=== PATIENT | male | born 1945 | race Two or more races ===

== ENCOUNTER → 2016-03-18 | Outpatient (CLI) | payer OTHER, MEDICARE ==
[2016-02-19 15:59] VITALS: BP 110/61
[~2016-03-18] MED LIST: ALLO300T PO; CARV25TA2 PO; CHOL500016 PO; CINN500C PO; CYCL10TA2 PO; FURO80TA3 PO; GLUC100018 PO; HYDR-2678 PO; ISOS30TA4 PO; LEVO112T4 PO; LISI40TA PO; MULT-658 PO; OMEG500C3 PO; OMEP40CA5 PO; POTA20TA12 PO; PRAV40TA2 PO; THIA100T22 PO; WARF1TAB7 PO; WARF5TAB7 PO
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
== END | disposition home or self-care (01) ==
LOC: MRI 09:10
PROVIDERS: ATTEND Physician Assistant Medical
DX: M47.892 Other spondylosis, cervical region (principal); M51.26 Other intervertebral disc displacement, lumbar region; M48.07 Spinal stenosis, lumbosacral region; M54.5 Low back pain; V89.2XXA Person injured in unspecified motor-vehicle accident, traffic, initial encounter; X58.XXXA Exposure to other specified factors, initial encounter; Y93.89 Activity, other specified; Y92.89 Other specified places as the place of occurrence of the external cause; Y99.8 Other external cause status
CPT/HCPCS: 72141; 72146; 72148

== ENCOUNTER → 2016-04-09 | Outpatient (CLI) | payer OTHER ==
[2016-02-19 15:59] VITALS: BP 110/61
[~2016-04-09] MED LIST changes: +AMIO200T2 PO; +SERT50TA8 PO; +TADA5TAB PO; +WARF2.5T PO; +WARF5TAB PO
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
== END | disposition home or self-care (01) ==
LOC: PNCL 10:40
PROVIDERS: ATTEND Anesthesiology
DX: M54.5 Low back pain (principal); M79.605 Pain in left leg; M79.604 Pain in right leg
CPT/HCPCS: 99214

== ENCOUNTER → 2016-04-27 | Outpatient (CLI) | payer OTHER ==
[2016-02-19 15:59] VITALS: BP 110/61
[2016-04-27 13:32] LABS: INR 1.2 (0.8-1.1); PROTHROMBIN TIME PATIENT 14.1 SEC (11.7-14.0)
== END | disposition home or self-care (01) ==
LOC: LAB 12:51
PROVIDERS: ATTEND Anesthesiology
DX: M51.16 Intervertebral disc disorders with radiculopathy, lumbar region (principal); M48.06 Spinal stenosis, lumbar region
CPT/HCPCS: 36415; 62323; 85610

== ENCOUNTER → 2016-04-27 | Outpatient (CLI) | payer MEDICARE, OTHER ==
[2016-02-19 15:59] VITALS: BP 110/61
[~2016-04-27] MED LIST changes: +IOHEXOL 180 MG/ML 10 ML VIAL. ONE; +methylPREDNISolone ACETATE 40 MG/ML VIAL. ONE; +methylPREDNISolone ACETATE 80 MG/ML VIAL. ONE
--- NOTE | 2016-04-28 04:33 | PAIN ---
DATE OF SERVICE: 04/27/2016 DIAGNOSES: Lumbar radiculopathy with lumbar degenerative disk disease and lumbar spinal stenosis. HISTORY OF PRESENT ILLNESS: The patient is a 70-year-old male who returns for followup status post initial evaluation and clearance to hold his Coumadin, which was done with his planning advisor and he has held this now for 5 days, who returns today with a PT today of 14.1 and an INR of 1.2. The patient reports still significant pain across the low back and bilateral lower extremities, worse on the right. The patient reports no new motor or sensory deficits, no new bowel or bladder incontinence or other complaints. Still significant pain rated as a 5 on a scale of 10, constant aching in the base of the low back and into the bilateral gluteus and legs. The patient also has pain in the base of the neck and shoulders as well as somewhat more on the left side. The patient reports no new motor or sensory deficits, no new bowel or bladder incontinence or other complaints. PHYSICAL EXAMINATION: VITAL SIGNS: The patient's blood pressure is 122/74, pulse 70, respirations 18, temperature 97.7 degrees Fahrenheit, weight is 329 pounds. GENERAL: The patient is awake, alert, oriented and appropriate, very pleasant demeanor. HEENT: Shows normocephalic and atraumatic. Extraocular movements are intact and symmetrical. Oral cavity, mucous membranes are moist and pink. Dentition is intact. NECK: Shows anterior throat supple without palpable lymphadenopathy noted. Swallow reflex is symmetrical. CHEST: Shows normal on inspection. Breath sounds are clear to auscultation bilaterally. HEART: Shows S1 and S2 clear. No murmurs auscultated. ABDOMEN: Obese, soft, nontender, nondistended. No palpable organomegaly. No rebound or guarding demonstrated. BACK: Shows spine grossly midline. Cervical paraspinous musculature some moderate tenderness with palpation in the inferior aspect of the cervical paraspinous muscles as well as the superior medial trapezius bilaterally, but is symmetrical, moderately tender without specific radiation. The patient does show good rotational motion of the cervical spine, both laterally as well as extension and flexion. Lumbar paraspinous musculature shows some moderate tenderness with palpation, although symmetrical in appearance with diffuse tenderness in the middle and lower distribution bilaterally without radiation. The patient shows good rotation and motion of the lumbar spine, both laterally as well as extension and flexion. LOWER EXTREMITIES: Show deep tendon reflexes at 1+ in the patellar and tendo calcaneus tendons. Motor exam is strong with about 4 on a scale of 5, but symmetrical with dorsiflexion, extension, quadriceps and hamstring flexion and are equal. Peripheral pulses are 1+ posterior tibial and dorsalis pedis pulses. No peripheral edema is noted bilaterally. Options were discussed with the patient. The patient's old chart was reviewed and his current medication regimen updated. Current review of systems updated today as well. We will proceed with a lumbar epidural steroid injection today with fluoroscopic guidance. Risks were again discussed including but not limited to bleeding, infection, possibility of epidural hematoma, subsequent neurologic compromise, dural puncture, headaches, spinal cord and/or nerve damage, side effects of steroid medication and poor results regarding pain control. The patient understands and wishes to proceed. The patient will return to clinic in approximately 2 weeks for followup. He was counseled on return appointment, activity level and side effects to be aware of. DIAGNOSES: Lumbar radiculopathy with lumbar spinal stenosis, lumbar degenerative disk disease. PROCEDURE: Lumbar epidural steroid injection in translaminar approach at the L4-L5 level with C-arm fluoroscopic guidance and sterile prep and drape using local anesthesia, medication injection of 120 mg of Depo-Medrol plus 10 mL of preservative-free normal saline and 2 mL of Isovue for contrast. The patient's condition at discharge is stable. The patient tolerated the procedure well, had no complications. SARAH MERRILL MD DR: JOSE ROBERTO/olayinka JOB#: [id number] / [id number]
== END | disposition home or self-care (01) ==
LOC: PNCL 13:35
PROVIDERS: ATTEND Anesthesiology
DX: M51.16 Intervertebral disc disorders with radiculopathy, lumbar region (principal); M48.06 Spinal stenosis, lumbar region
CPT/HCPCS: 62323; J1030; J1040

== ENCOUNTER → 2016-05-21 | Outpatient (CLI) | payer OTHER ==
[2016-02-19 15:59] VITALS: BP 110/61
[~2016-05-21] MED LIST changes: -IOHEXOL 180 MG/ML 10 ML VIAL. ONE; -methylPREDNISolone ACETATE 40 MG/ML VIAL. ONE; -methylPREDNISolone ACETATE 80 MG/ML VIAL. ONE
--- NOTE | 2016-05-22 06:23 | PAIN ---
DATE OF SERVICE: 05/21/2016 PROGRESS NOTE FOR PAIN CLINIC DIAGNOSES: 1. Lumbar radiculopathy with lumbar degenerative disk disease and lumbar spinal stenosis. 2. Cervical radiculopathy with cervical degenerative disk disease. HISTORY OF PRESENT ILLNESS: The patient is a 70-year-old male who returns for followup status post lumbar epidural steroid injection x 1. The patient reports significant improvement, about 80% better in the back and his right greater than left lower extremity. The patient is doing much better, increasing his activity with greater ease and comfort. His main complaint, however, is pain in the base of the neck and radiation into the left upper extremity and arm into the hand with some tingling and numbness, which is becoming worse since his back has been better. The patient reports some on the right shoulder as well, but mostly in the left posterior aspect of the shoulder, lateral aspect of the shoulder and into the lateral aspect of the forearm and into the thumb ____ on the left hand. The patient reports his pain is a 4 on a scale of 10 in the neck, shoulder, worse with rotational motion, also with driving using his left arm to steer and it has been awakening him from sleep occasionally. Again, the patient's back is doing much better, but significant pain in the neck with radiating pain into the left upper extremity in a radicular fashion. The patient has just finished physical therapy for his neck as of about 1-1/2 weeks ago and reports that this did help some, but the pain is still significant and still radiating into the left arm. PHYSICAL EXAMINATION: VITAL SIGNS: The patient's blood pressure is 108/62, pulse 81, respirations 18, temperature 98.4 degrees Fahrenheit, weight is 330 pounds. GENERAL: The patient is awake, alert, oriented, appropriate, has a very pleasant demeanor. HEENT: Head shows normocephalic, atraumatic. Extraocular movements are intact, symmetrical. Oral cavity, mucous membranes are moist and pink. Dentition is intact. NECK: Shows anterior throat supple without palpable lymphadenopathy noted. Swallow reflex is symmetrical. CHEST: Shows normal on inspection. Breath sounds are clear to auscultation bilaterally. HEART: Shows S1 and S2 clear. ABDOMEN: Obese, soft, nontender, nondistended. No palpable organomegaly is noted. No rebound or guarding demonstrated. BACK: Shows spine grossly in the midline. Cervical paraspinous muscle shows some moderate tenderness to palpation in the inferior aspect of the cervical paraspinous muscles as well as the superior medial and lateral trapezius, somewhat more tender on the left than the right, but symmetrical, no trigger points, no radiation of pain demonstrated. EXTREMITIES: The patient's lower extremities show deep tendon reflexes 1+ in the patellar and tendo calcaneus tendons. Motor exam is approximately 4 on a scale of 5, but equal and symmetrical. Upper extremities show exchange architect strength at 4/5 on the left and 5/5 on the right. PLAN: Options were discussed with the patient. The patient's old chart was reviewed and his current medication regimen updated. Current review of systems updated today as well. We will preauthorize the patient for a cervical epidural steroid injection as he has had recent physical therapy, still significant pain radiating to the left upper extremity in a radicular fashion. The patient did have MRI scan of the cervical spine dated 03/18/2016 showing degenerative changes throughout the cervical disk spaces, but without significant central or spinal stenosis. We will also, once preapproved, have him hold his Coumadin for 5 days prior to the injection with PT and INR pending. Once again, we will try Medrol Dosepak in the meantime. The patient was given instructions as well as side effects to be aware of with this medication and he will follow up as scheduled. SARAH MERRILL MD DR: JOSE ROBERTO/olayinka JOB#: [id number] / [id number]
== END | disposition home or self-care (01) ==
LOC: PNCL 10:25
PROVIDERS: ATTEND Anesthesiology
DX: M51.16 Intervertebral disc disorders with radiculopathy, lumbar region (principal); M48.06 Spinal stenosis, lumbar region; M50.10 Cervical disc disorder with radiculopathy, unspecified cervical region
CPT/HCPCS: G0463

== ENCOUNTER → 2016-07-01 | Outpatient (CLI) | payer OTHER, MEDICARE ==
[2016-02-19 15:59] VITALS: BP 110/61
[~2016-07-01] MED LIST changes: +IOHEXOL 180 MG/ML 10 ML VIAL. ONE; +methylPREDNISolone ACETATE 40 MG/ML VIAL. ONE; +methylPREDNISolone ACETATE 80 MG/ML VIAL. ONE
--- NOTE | 2016-07-01 23:38 | PAIN ---
DATE OF SERVICE: 07/01/2016 PROGRESS NOTE FOR PAIN CLINIC DIAGNOSES: 1. Lumbar radiculopathy with lumbar degenerative disk disease, lumbar spinal stenosis. 2. Cervical radiculopathy with cervical degenerative disk disease. HISTORY OF PRESENT ILLNESS: The patient is a 70-year-old male, who returns for followup status post lumbar epidural steroid injection x 1 with good results about 80% improvement. He is having some significant pain in the neck and shoulders. ____ him for cervical epidural steroid injections ____ has been off his Coumadin now for 5 days with PT is 12.7, INR 1.0 today. The patient reports still significant pain in the base of the neck and shoulders and would like to proceed with this mostly in the right arm and shoulder, right hand with some decreased strength in the right fur examiner, otherwise no new motor or sensory deficits, no new bowel or bladder incontinence or other complaints. PHYSICAL EXAMINATION: VITAL SIGNS: Today, the patient's blood pressure is 164/71, pulse 81, respirations 18, temperature is 98.7 degrees, weight is 338 pounds. GENERAL: The patient is awake, alert, oriented, appropriate, very pleasant demeanor. HEENT: Head shows normocephalic, atraumatic. Extraocular movements are intact, symmetrical. Oral cavity, mucous membranes are moist and pink. Dentition is intact. NECK: Shows anterior throat supple without palpable lymphadenopathy noted. Swallow reflex is symmetrical. CHEST: Shows normal on inspection. Breath sounds are clear to auscultation bilaterally. HEART: Shows S1 and S2 clear. ABDOMEN: Soft, nontender, nondistended. No palpable organomegaly is noted. No rebound or guarding demonstrated. BACK: The patient's back shows spine grossly midline. Cervical paraspinous muscle shows some mild tenderness with palpation, more on the right than the left in the inferior aspect of the cervical paraspinous musculature without radiation. The patient does show good rotational motion of cervical spine including extension and flexion without difficulty. EXTREMITIES: Upper extremities show deep tendon reflexes at 1+ in the biceps and triceps tendons. Motor exam is strong with fur examiner strength at about 4/5 on the right and 5/5 on the left. Options were discussed with the patient. At this time, the patient's old chart was reviewed and his current medication regimen updated. Current review of systems updated today as well. We will proceed with a cervical epidural steroid injection today with fluoroscopic guidance. Risk again discussed including but not limited to bleeding, infection, possibility of epidural hematoma and subsequent neurological compromise, dural puncture, headaches, spinal cord and/or nerve damage, side effects of steroid medication and poor results regarding pain control. The patient understands and wishes to proceed. The patient will return to clinic in approximately 2 weeks for followup, was counseled on return appointment, activity level, and side effects to be aware of. DIAGNOSIS: Cervical radiculopathy with cervical degenerative disk disease. PROCEDURE: Cervical epidural steroid injection using C-arm fluoroscopic guidance under sterile prep and drape using local anesthetic. MEDICATION INJECTED: Depo-Medrol 120 mg plus 5 mL of preservative-free normal saline and 2 mL of Isovue for contrast. CONDITION AT DISCHARGE: Stable. The patient tolerated procedure well, had no complications. SARAH MERRILL MD DR: JOSE ROBERTO/olayinka JOB#: [id number] / [id number]
== END | disposition home or self-care (01) ==
LOC: PNCL 09:18
PROVIDERS: ATTEND Anesthesiology
DX: M50.10 Cervical disc disorder with radiculopathy, unspecified cervical region (principal); M51.16 Intervertebral disc disorders with radiculopathy, lumbar region; M48.06 Spinal stenosis, lumbar region
CPT/HCPCS: 62321; J1030; J1040

== ENCOUNTER → 2016-07-15 | Outpatient (CLI) | payer OTHER ==
[2016-02-19 15:59] VITALS: BP 110/61
[~2016-07-15] MED LIST changes: +ATOR10TA60 PO; -IOHEXOL 180 MG/ML 10 ML VIAL. ONE; +WARF-78 PO; -WARF2.5T PO; +WARF2.5T83 PO; -WARF5TAB PO; -methylPREDNISolone ACETATE 40 MG/ML VIAL. ONE; -methylPREDNISolone ACETATE 80 MG/ML VIAL. ONE
--- NOTE | 2016-07-15 23:40 | PAIN ---
DATE OF SERVICE: 07/15/2016 PROGRESS NOTE PAIN CLINIC DIAGNOSES: 1. Lumbar radiculopathy with lumbar degenerative disk disease and lumbar spinal stenosis. 2. Cervical radiculopathy with cervical degenerative disk disease. HISTORY OF PRESENT ILLNESS: The patient is 70-year-old male who returns for followup status post both lumbar epidural steroid injections and cervical epidural steroid injections x 2. The patient reports that he has done very well with each of these about 50% improvement overall to 60% improvement with his neck and shoulder. The patient reports still some pain in the base of the neck on the left side and into the left arm, but again much improved after the last injection, which was on 07/01/2016. The patient reports no new motor or sensory deficits or other complaints, just some pain radiating from a 0 to 6 on a scale of 10, 6 with increased activity using his left upper extremity, moving his neck, or looking upwards, doing any activities with his arms overhead. The patient reports this is a stabbing pain, it is off and on, but is not constant at this time. The patient's low back is doing much better and he has very little complaint with that ____. The patient reports no new motor or sensory deficits, no new bowel or bladder incontinence or other complaints. PHYSICAL EXAMINATION: VITAL SIGNS: Today his blood pressure is 90/60 and 90/58 on second reading. The patient's pulse is 56, respirations 16, temperature 98.4 degrees Fahrenheit, weight is 331 pounds. GENERAL: The patient is awake, alert, oriented and appropriate, very pleasant demeanor. HEENT: Shows normocephalic, atraumatic. ____. Extraocular movements are intact and symmetrical. Oral cavity, mucous membranes are moist and pink. Dentition is intact. NECK: Shows anterior throat supple. Swallow reflex is symmetrical. CHEST: Shows normal with inspection. LUNGS: Breath sounds clear to auscultation bilaterally. HEART: Shows S1 and S2 clear. ABDOMEN: Soft, obese, nontender, and nondistended. MUSCULOSKELETAL: Back shows spine grossly in midline. Exaggerated thoracic kyphosis and mild flattening of the lumbar lordotic curvature with normal lordotic cervical curvature. The patient shows cervical musculature with some moderate tenderness with palpation with more on the left than the right inferior aspects of the cervical paraspinous muscles and to the left lateral trapezius, but not to the right. The patient shows full rotation motion of the cervical spine with extension and flexion without significant difficulty and minor tenderness with forward left lateral rotation past 45 degrees, but not with right lateral rotation. Upper extremity showed deep tendon reflexes at 1+ in the biceps and triceps tendon. Motor exam is approximately 4 on a scale of 5 with left line tender flakeboard strength, biceps and triceps flexion of 5/5 on the right. Low back shows only very minimal tenderness with deep palpation over the lower lumbar paraspinous musculature diffusely without radiation. No tenderness over the sacrum or sacroiliac regions. EXTREMITIES: Lower extremities show deep tendon reflexes 1+ in the patellar and tendo-calcaneus tendons. Motor exam is strong with 5/5 dorsiflexion, extension and quadricep and hamstring flexion and symmetrical. Options were discussed with the patient. We will have the patient hold his Coumadin once again as he has been cleared to do this with his primary physician. We will have him hold this for 5 days. Check PT and INR and plan on a third cervical epidural steroid injection, which will be the final injection in the series on return. SARAH MERRILL MD DR: JOSE ROBERTO/olayinka JOB#: [id number] / [id number]
== END | disposition home or self-care (01) ==
LOC: PNCL 09:12
PROVIDERS: ATTEND Anesthesiology
DX: M51.16 Intervertebral disc disorders with radiculopathy, lumbar region (principal); M48.06 Spinal stenosis, lumbar region; M50.10 Cervical disc disorder with radiculopathy, unspecified cervical region
CPT/HCPCS: G0463

== ENCOUNTER → 2016-07-31 | Outpatient (CLI) | payer OTHER ==
[2016-02-19 15:59] VITALS: BP 110/61
[2016-07-31 09:21] LABS: INR 1.5 (0.8-1.1)
[2016-07-31 09:25] LABS: PROTHROMBIN TIME PATIENT 16.8 SEC (11.7-14.0)
== END | disposition home or self-care (01) ==
LOC: LAB 08:37
PROVIDERS: ATTEND Anesthesiology
DX: Z79.01 Long term (current) use of anticoagulants (principal)
CPT/HCPCS: 36415; 85610

== ENCOUNTER → 2016-08-19 | Outpatient (CLI) | payer OTHER ==
[2016-02-19 15:59] VITALS: BP 110/61
--- NOTE | 2016-08-19 14:42 | KCIC ---
Examination: Ultrasound right lower extremity venous duplex HISTORY: History of right lower extremity edema TECHNIQUE: Grayscale, color, spectral with prominence of the right lower extremity venous system were performed. FINDINGS: The visualized common femoral vein, superficial femoral vein, popliteal vein demonstrate normal compression and augmentation of flow. Evaluation of the calf veins are somewhat limited but however appear patent. Mild soft tissue edema identified in the right lower leg Mild enlargement of the right inguinal lymph node measuring 3 cm. IMPRESSION: No evidence of deep venous thrombosis in the visualized right lower extremity. Electronically signed by: Dyllan Steele MD (08/19/2016 2:38 PM)
== END | disposition home or self-care (01) ==
LOC: KCIC US 13:37
PROVIDERS: ATTEND Family Medicine
DX: R60.0 Localized edema (principal); R59.9 Enlarged lymph nodes, unspecified
CPT/HCPCS: 93971

== ENCOUNTER → 2016-08-20 | Outpatient (CLI) | payer OTHER ==
[2016-02-19 15:59] VITALS: BP 110/61
--- NOTE | 2016-08-20 13:21 | RAD ---
Left foot, 3 views, 08/20/2016: History: Great toe injury, pain There is patchy bony demineralization. There is deformity of the distal phalanx of the great toe, compatible with an old healed fracture. There is a cortical discontinuity with an adjacent lucency along the lateral margin of the proximal portion of the distal phalanx raising the possibility of a superimposed acute nondisplaced fracture. There are degenerative changes at the interphalangeal joint of the great toe. Numerous tiny radio opaque foreign bodies projected over the soft tissues in this region are likely old. Clinical correlation is suggested. There is a small linear wire-like radiopaque foreign body projected over the soft tissues along the plantar aspect of the foot at the level of the proximal phalanx of the third toe. This is also likely due to old trauma. No other acute fracture or dislocation is identified. Arterial calcifications are present. There is mild generalized subcutaneous edema. IMPRESSION: 1. Demineralization. 2. Deformity of the distal phalanx of the great toe which is predominantly old. There is a suggestion of a nondisplaced fracture laterally which may be new. 3. Adjacent tiny radiopaque foreign bodies in the soft tissues of the great toe, likely old. 4. Additional small wire-like radiopaque foreign body projected over the soft tissues at the proximal third phalangeal level.
== END | disposition home or self-care (01) ==
LOC: RAD 10:15
PROVIDERS: ATTEND Physician Assistant Medical
DX: S99.922A Unspecified injury of left foot, initial encounter (principal); X58.XXXA Exposure to other specified factors, initial encounter; Y93.89 Activity, other specified; Y92.89 Other specified places as the place of occurrence of the external cause; Y99.8 Other external cause status
CPT/HCPCS: 73630

== ENCOUNTER → 2016-08-24 | Outpatient (CLI) | payer OTHER ==
[2016-02-19 15:59] VITALS: BP 110/61
[~2016-08-24] MED LIST changes: -CINN500C PO; +CINN500C2 PO
[2016-08-24 09:23] LABS: INR 1.1 (0.8-1.1); PROTHROMBIN TIME PATIENT 13.1 SEC (11.7-14.0)
== END | disposition home or self-care (01) ==
LOC: LAB 08:57
PROVIDERS: ATTEND Anesthesiology
DX: Z79.01 Long term (current) use of anticoagulants (principal)
CPT/HCPCS: 36415; 85610

== ENCOUNTER → 2016-08-24 | Outpatient (CLI) | payer OTHER ==
[2016-02-19 15:59] VITALS: BP 110/61
[~2016-08-24] MED LIST changes: +IOHEXOL 180 MG/ML 10 ML VIAL. ONE; +methylPREDNISolone ACETATE 40 MG/ML VIAL. ONE; +methylPREDNISolone ACETATE 80 MG/ML VIAL. ONE
--- NOTE | 2016-08-25 02:16 | PN ---
DATE: 08/24/2016 PROGRESS NOTE FOR PAIN CLINIC DIAGNOSES: 1. Lumbar radiculopathy with lumbar degenerative disk disease and lumbar spinal stenosis. 2. Cervical radiculopathy with cervical degenerative disk disease. HISTORY OF PRESENT ILLNESS: The patient is a 71-year-old male who returns for followup status post cervical epidural steroid injection x 2. The patient reports he did very well about a 50-60% improvement, we are waiting for his PT and INR to normalize, is now 13.1 and 1.1 INR. The patient's significant pain in the base of the neck and shoulders as he had previously more on the right side than the left, but his aching, sharp pain is constant, rates as 8 on a scale of 10. It is worst, is currently 3 on a scale of 10 today. The patient was doing well, awake. He fell about a week ago ____ stroke and stubbed the toe on his left foot and significant swelling in his right lower extremity as well as he put on Keflex has been off for 5 days by his report from his primary physician's office, but still has some significant pain and some weeping actually from the edema in his right leg. The patient reports no new motor or sensory deficits, no new bowel or bladder incontinence or other complaints. Reports the pain awakens him from night, but only occasionally, easily sleeps about 6-8 hours a night without difficulty. PHYSICAL EXAMINATION: VITAL SIGNS: Today, the patient's blood pressure 129/65, pulse 70, respirations are 20, temperature 97.6 degrees Fahrenheit. GENERAL: The patient is awake, alert, oriented, appropriate, very pleasant demeanor. HEENT: Head shows normocephalic, atraumatic. Extraocular movements are intact and symmetrical. The patient wears glasses. Oral cavity, mucous membranes are moist and pink. Dentition is intact. NECK: Shows anterior throat supple without palpable lymphadenopathy noted. Swallow reflex is symmetrical. CHEST: Shows normal on inspection. Breath sounds are clear to auscultation bilaterally. HEART: Shows S1 and S2 clear. ABDOMEN: Obese, soft, nontender, nondistended. No palpable organomegaly is noted. BACK: Shows spine grossly midline. Cervical paraspinous musculature shows some moderate tenderness with palpation throughout the middle and lower cervical paraspinous musculature diffusely in the superior medial and lateral trapezius as well bilaterally. This appears roughly symmetrical with palpation shows some moderate tenderness, but without radiation or trigger points. EXTREMITIES: Upper extremities showed deep tendon reflexes at 1+ in the biceps and triceps tendons. Motor exam is strong with cupola liner strength rated at 5/5 bilaterally. Options were discussed with the patient. The patient's old chart was reviewed as his current medication regimen updated. Current review of systems updated today as well. We will proceed with the cervical epidural steroid injections third in the series with fluoroscopic guidance. Risks were again discussed including, but not limited to bleeding, infection, possibility of epidural hematoma and subsequent neurological compromise, dural puncture, headaches, spinal cord and/or nerve damage, side effects of steroid medication and poor results regarding pain control. The patient understands and wishes to proceed. The patient will return to clinic in approximately 2 weeks for followup, was counseled on return appointment, activity level and side effects to be aware of. DIAGNOSIS: Cervical radiculopathy with cervical degenerative disk disease. PROCEDURE: Cervical epidural steroid injection in translaminar approach at the C6-C7 level using C-arm fluoroscopic guidance under sterile prep and drape using local anesthetic. MEDICATION INJECTED: Depo-Medrol of 120 mg plus 5 mL preservative-free normal saline and 2 mL of Isovue for contrast. CONDITION AT DISCHARGE: Stable. The patient tolerated procedure well, had no complications. SARAH MERRILL MD DR: JOSE ROBERTO/olayinka JOB#: [id number] / [id number]
== END | disposition home or self-care (01) ==
LOC: PNCL 09:16
PROVIDERS: ATTEND Anesthesiology
DX: M50.123 Cervical disc disorder at C6-C7 level with radiculopathy (principal); M51.16 Intervertebral disc disorders with radiculopathy, lumbar region; M48.06 Spinal stenosis, lumbar region; Z88.8 Allergy status to other drugs, medicaments and biological substances
CPT/HCPCS: 62321; J1030; J1040

== ENCOUNTER 2016-09-23 13:06 | Inpatient (IN) | payer OTHER ==
[~2016-09-23] VITALS: Ht 180.3 cm; Wt 145.3 kg
[~2016-09-23 13:06] MED LIST changes: -IOHEXOL 180 MG/ML 10 ML VIAL. ONE; -methylPREDNISolone ACETATE 40 MG/ML VIAL. ONE; -methylPREDNISolone ACETATE 80 MG/ML VIAL. ONE
[2016-09-23] MEDS ORDERED: IV NORMAL SALINE 1000ML BAG 1,000 ML IV ONE (15:45)
[2016-09-23 16:10] VITALS: BP 77/46
[2016-09-23 16:29] LABS: HEMATOCRIT 34.9 % (39.0-53.0); RED BLOOD COUNT 4.01 x10^6/uL (4.30-5.70); WHITE BLOOD COUNT 6.8 x10^3/uL (4.0-11.0)
[2016-09-23 16:45] VITALS: BP 92/78
[2016-09-23 17:00] LABS: ALBUMIN/GLOBULIN RATIO 0.7 (1.0-1.7); CALCIUM 7.4 mg/dL (8.5-10.1); CREATININE 9.5 mg/dL (0.7-1.3); GFR 5.5; POTASSIUM 3.6 mmol/L (3.5-5.1); TOTAL BILIRUBIN 0.6 mg/dL (0.2-1.0); TOTAL PROTEIN 7.2 g/dL (6.4-8.2)
[2016-09-23] MEDS: IV DEXTROSE 5% - 0.9 % NACL 1,000 ML IV SCH ×2 (17:30→23:34)
[2016-09-23] MEDS: PANTOPRAZOLE 40 MG TABLET.DR. PO SCH (17:30)
[2016-09-23] MEDS: SERTRALINE 50 MG TABLET. PO SCH (17:31)
[2016-09-23] MEDS: LEVOTHYROXINE 112 MCG TABLET PO SCH (17:31)
[2016-09-23 18:29] LABS: BILIRUBIN,URINE NEGATIVE (NEG); GLUCOSE,URINE NEGATIVE (NEG); NITRITE,URINE NEGATIVE (NEG); PROTEIN,URINE NEGATIVE (NEG-TRACE); UROBILINOGEN,URINE 0.2 mg/dL (0.2 mg/dL)
[2016-09-23 18:38] LABS: BACTERIA,URINE 0 /HPF (0-FEW); RBC,URINE 0 /HPF (0-2); SQUAMOUS EPITHELIAL CELL,UR FEW /LPF; WBC,URINE OCC /HPF (0-4)
[2016-09-23 19:00] VITALS: BP 104/53
[2016-09-23 23:00] VITALS: BP 94/50
[2016-09-23] MEDS: ACETAMINOPHEN 325 MG TABLET. PO PRN (23:30)
[2016-09-24] MEDS ORDERED: [UNRECOGNIZED DRUG - CODE] PO (02:30)
[2016-09-24 03:00] VITALS: BP 90/50
[2016-09-24 04:27] LABS: CALCIUM 7.1 mg/dL (8.5-10.1); GFR 7.8
[2016-09-24] MEDS: IV DEXTROSE 5% - 0.9 % NACL 1,000 ML IV SCH (05:42)
[2016-09-24] MEDS: LEVOTHYROXINE 112 MCG TABLET PO SCH (05:42)
[2016-09-24 06:58] VITALS: BP 109/60
--- NOTE | 2016-09-24 08:20 | RAD ---
Renal ultrasound, 09/23/2016: History: Acute renal failure The right kidney measures 11.8 cm in length while the left kidney measures 13.1 cm. There is no evidence of hydronephrosis or a renal mass. The renal parenchymal echogenicity is within normal limits. No abnormal perinephric process is seen. Limited views of the urinary bladder show no abnormality. There is a small volume of post voiding residual urine in the bladder estimated at 77 cc. IMPRESSION: No significant renal abnormality is detected.
--- NOTE | 2016-09-24 08:28 | PDOC1 ---
History and Physical Date of Admission Date of Admission DATE: 09/23/16 TIME: 08:25 Identification/Chief Complaint Chief Complaint arf Problems: History of Present Illness History of Present Illness hx of AF, has been taking both lasix and metolozone recently for edema- hx of no CAD/ cardiomyopathy- labs as op showed arf and admitted- hypotensive in office as well Past Medical History Cardiovascular: AFIB, HTN, Hyperlipidemia GI: GERD Musculoskeletal: Other Endocrine: Hypothyroidism Past Surgical History Past Surgical History: Total hip replacement, Tonsillectomy, Other Family History Family History: No Significant Social History ALCOHOL: none Current Medications Current Medications Current Medications Sodium Chloride 1,000 ml @ 500 mls/hr 1X ONCE IV Last administered on 15:30; Start 09/23/16 at 15:45; Stop 09/23/16 at 17:44; Status DC Dextrose/Sodium Chloride 1,000 ml @ 200 mls/hr Q5H IV Last administered on 05:42; Start 09/23/16 at 15:45 Levothyroxine Sodium (Synthroid) 112 mcg DAILY07 PO Last administered on 05:42; Start 09/23/16 at 16:00 Sertraline HCl (Zoloft) 50 mg DAILY PO ; Start 09/23/16 at 16:00 Pantoprazole Sodium (Protonix) 40 mg DAILYAC PO ; Start 09/23/16 at 16:00 Acetaminophen (Tylenol) 650 mg PRN Q6HRS PRN PO Pain Last administered on 23:30; Start 09/23/16 at 23:15 Active Scripts Active Lortab 5-325 mg Tablet (Hydrocodone/Acetaminophen) 1 Each Tablet 1 Tab PO PRN Q6HRS PRN Cyclobenzaprine Hcl 10 Mg Tablet 10 Mg PO TID PRN Reported Dietex Forte Capsule (Guar/Steven/Dr Wynn-Org Peel/[id number]) 1 Each Capsule 1 Each PO DAILY Atorvastatin Calcium 10 Mg Tablet 40 Tab PO DAILY Amiodarone Hcl 200 Mg Tablet 1 Tab PO DAILY Coumadin (Warfarin Sodium) 5 Mg Tablet 1 Tab PO 5 DAYS A WEEK Coumadin (Warfarin Sodium) 2.5 Mg Tablet 1 Tab PO TWICE WEEKLY Sertraline Hcl 50 Mg Tablet 50 Mg PO DAILY Cialis (Tadalafil) 5 Mg Tablet 20 Mg PO PRN PRN Vitamin D3 (Cholecalciferol (Vitamin D3)) 5,000 Unit Tablet 1 Tab PO DAILY Vitamin B-1 (Thiamine Mononitrate) 100 Mg Tablet 100 Mg PO Glucosamine (Glucosamine Sulfate 2KCL) 1,000 Mg Tablet 1,000 Mg PO BID Fish Oil ([place]-3 Fatty Acids) 500 Mg Capsule 360 Mg PO TID Cinnamon (Cinnamon Bark) 500 Mg Capsule 500 Mg PO BID Centrum Silver Tablet (Multivits-Min/Fa/Lycopene/Lut) 1 Each Tablet 1 Each PO Omeprazole 40 Mg Capsule.dr 1 Cap PO DAILY Lisinopril 40 Mg Tablet 1 Tab PO BID Levothyroxine Sodium 112 Mcg Tablet 1 Tab PO DAILY Potassium Chloride 20 Meq Tab.er.prt 2 Tab PO DAILY Furosemide 80 Mg Tablet 1 Tab PO BID Carvedilol 25 Mg Tablet 1 Tab PO BID Allopurinol 300 Mg Tablet 1 Tab PO DAILY Allergies Allergies: Coded Allergies: naproxen (Verified Allergy, Intermediate, Hives, 12/10/14) Vitals Vitals Vital Signs Date Time Temp Pulse Resp B/P (MAP) Pulse Ox O2 Delivery O2 Flow Rate FiO2 09/24/16 07:55 Room Air 09/24/16 06:58 98.7 82 18 109/60 (76) 95 98.7 Labs Labs Laboratory Tests Test 09/23/16 16:15 09/23/16 18:00 09/24/16 03:00 White Blood Count 6.8 x10^3/uL (4.0-11.0) Red Blood Count 4.01 x10^6/uL (4.30-5.70) Hemoglobin 12.0 g/dL (13.0-17.5) Hematocrit 34.9 % (39.0-53.0) Mean Corpuscular Volume 87 fL (79-100) Mean Corpuscular Hemoglobin 30 pg (25-35) Mean Corpuscular Hemoglobin Concent 34 g/dL (31-37) Red Cell Distribution Width 15.0 % (11.5-14.5) Platelet Count 133 x10^3/uL (140-400) Sodium Level 140 mmol/L (136-145) 144 mmol/L (136-145) Potassium Level 3.6 mmol/L (3.5-5.1) 3.0 mmol/L (3.5-5.1) Chloride Level 100 mmol/L (98-107) 106 mmol/L (98-107) Carbon Dioxide Level 21 mmol/L (21-32) 20 mmol/L (21-32) Anion Gap 19 (6-14) 18 (6-14) Blood Urea Nitrogen 213 mg/dL (8-26) 194 mg/dL (8-26) Creatinine 9.5 mg/dL (0.7-1.3) 7.0 mg/dL (0.7-1.3) Estimated GFR (Cockcroft-Gault) 5.5 7.8 BUN/Creatinine Ratio 22 (6-20) Glucose Level 101 mg/dL (70-99) 125 mg/dL (70-99) Calcium Level 7.4 mg/dL (8.5-10.1) 7.1 mg/dL (8.5-10.1) Total Bilirubin 0.6 mg/dL (0.2-1.0) Aspartate Amino Transf (AST/SGOT) 20 U/L (15-37) Alanine Aminotransferase (ALT/SGPT) 29 U/L (16-63) Alkaline Phosphatase 62 U/L (46-116) Total Protein 7.2 g/dL (6.4-8.2) Albumin 3.0 g/dL (3.4-5.0) Albumin/Globulin Ratio 0.7 (1.0-1.7) Urine Collection Type Unknown Urine Color Yellow Urine Clarity Clear Urine pH 5.0 Urine Specific [place] 1.015 Urine Protein Negative mg/dL (NEG-TRACE) Urine Glucose (UA) Negative mg/dL (NEG) Urine Ketones (Stick) Negative mg/dL (NEG) Urine Blood Negative (NEG) Urine Nitrite Negative (NEG) Urine Bilirubin Negative (NEG) Urine Urobilinogen Dipstick 0.2 mg/dL (0.2 mg/dL) Urine Leukocyte Esterase Negative (NEG) Urine RBC 0 /HPF (0-2) Urine WBC Occ /HPF (0-4) Urine Squamous Epithelial Cells Few /LPF Urine Bacteria 0 /HPF (0-FEW) Laboratory Tests Test 09/23/16 16:15 09/23/16 18:00 09/24/16 03:00 White Blood Count 6.8 x10^3/uL (4.0-11.0) Red Blood Count 4.01 x10^6/uL (4.30-5.70) Hemoglobin 12.0 g/dL (13.0-17.5) Hematocrit 34.9 % (39.0-53.0) Mean Corpuscular Volume 87 fL (79-100) Mean Corpuscular Hemoglobin 30 pg (25-35) Mean Corpuscular Hemoglobin Concent 34 g/dL (31-37) Red Cell Distribution Width 15.0 % (11.5-14.5) Platelet Count 133 x10^3/uL (140-400) Sodium Level 140 mmol/L (136-145) 144 mmol/L (136-145) Potassium Level 3.6 mmol/L (3.5-5.1) 3.0 mmol/L (3.5-5.1) Chloride Level 100 mmol/L (98-107) 106 mmol/L (98-107) Carbon Dioxide Level 21 mmol/L (21-32) 20 mmol/L (21-32) Anion Gap 19 (6-14) 18 (6-14) Blood Urea Nitrogen 213 mg/dL (8-26) 194 mg/dL (8-26) Creatinine 9.5 mg/dL (0.7-1.3) 7.0 mg/dL (0.7-1.3) Estimated GFR (Cockcroft-Gault) 5.5 7.8 BUN/Creatinine Ratio 22 (6-20) Glucose Level 101 mg/dL (70-99) 125 mg/dL (70-99) Calcium Level 7.4 mg/dL (8.5-10.1) 7.1 mg/dL (8.5-10.1) Total Bilirubin 0.6 mg/dL (0.2-1.0) Aspartate Amino Transf (AST/SGOT) 20 U/L (15-37) Alanine Aminotransferase (ALT/SGPT) 29 U/L (16-63) Alkaline Phosphatase 62 U/L (46-116) Total Protein 7.2 g/dL (6.4-8.2) Albumin 3.0 g/dL (3.4-5.0) Albumin/Globulin Ratio 0.7 (1.0-1.7) Urine Collection Type Unknown Urine Color Yellow Urine Clarity Clear Urine pH 5.0 Urine Specific [place] 1.015 Urine Protein Negative mg/dL (NEG-TRACE) Urine Glucose (UA) Negative mg/dL (NEG) Urine Ketones (Stick) Negative mg/dL (NEG) Urine Blood Negative (NEG) Urine Nitrite Negative (NEG) Urine Bilirubin Negative (NEG) Urine Urobilinogen Dipstick 0.2 mg/dL (0.2 mg/dL) Urine Leukocyte Esterase Negative (NEG) Urine RBC 0 /HPF (0-2) Urine WBC Occ /HPF (0-4) Urine Squamous Epithelial Cells Few /LPF Urine Bacteria 0 /HPF (0-FEW) VTE Prophylaxis Ordered VTE Prophylaxis Devices: No VTE Pharmacological Prophylaxi: No Assessment/Plan Assessment/Plan aggressive iv fluids, renal sono, no xarelto as he has had some mildly bloody stools/diarrhea lately, c diff study, appr. consults- may need temp dialysis CAMPOS KINCAID MD Sep 24, 2016 08:28
[2016-09-24] MEDS: PANTOPRAZOLE 40 MG TABLET.DR. PO SCH (08:59)
[2016-09-24] MEDS: SERTRALINE 50 MG TABLET. PO SCH (08:59)
--- NOTE | 2016-09-24 09:16 | PDOC ---
Provider Note Provider Note better bp and great output- sono clear creat down from > 9 to 7 - discussed nonoliguric state is beeter than oliguric- K+ lowr so add iv/po kcl and follow- off coreg re bp, c diff pending but diarrhea is mild now CAMPOS KINCAID MD Sep 24, 2016 09:16
[2016-09-24] MEDS: POTASSIUM CL 20MEQ D5-0.9%NACL 1,000 ML IV SCH ×2 (10:02→16:40)
[2016-09-24] MEDS: POTASSIUM CHLORIDE 10 MEQ TABLET.ER. PO SCH ×3 (10:02→16:39)
[2016-09-24 11:00] VITALS: BP 108/49
--- NOTE | 2016-09-24 11:03 | PDOC2 ---
CARDIAC CONSULT DATE OF CONSULT Date of Consult DATE: 09/24/16 TIME: 10:51 REASON FOR CONSULT Reason for Consult: AFIB REFERRING PHYSICIAN Referring Physician: Dr. Peña SOURCE Source: Chart review, Patient HISTORY OF PRESENT ILLNESS HISTORY OF PRESENT ILLNESS This is a 71 yo male, with a h/o PAFIB, HTN, and HLP, who presented from Dr. Peña's office secondary to hypotension and acute renal failure. Patient reports experiencing PARKER for the last 2-3 months. Previously on warfarin stroke prophylaxis due to AFIB. Started on Xarelto about two weeks ago. Reports having blood stools basically since initiation. Denies any fevers or illness. Has had some diarrhea. Denies any difficulty with urination. In addition, no CP, palpitations, dizziness, diaphoresis, or N/V. Start on metolazone three times per week recently due to increased LE edema. Reports compliance with medications. PAST MEDICAL HISTORY Cardiovascular: AFIB, CHF, HTN, Hyperlipidemia, Other (PAD) Pulmonary: Pneumonia, Other (RENETTA) GI: GERD, Other (Lovett's esophagus) Psych: Depression Musculoskeletal: Osteoarthritis Endocrine: Hypothyroidism, Other (obesity ) PAST SURGICAL HISTORY Past Surgical History: Total hip replacement (left ), Tonsillectomy FAMILY HISTORY Family History: Other (noncontribtory ) SOCIAL HISTORY Smoke: Quit ( >10 years ago) ALCOHOL: none Drugs: None CURRENT MEDICATIONS CURRENT MEDICATIONS Current Medications Medications (Trade) Dose Ordered Sig/Bhumika Route PRN Reason Start Time Stop Time Status Last Admin Dose Admin Sodium Chloride 1,000 ml @ 500 mls/hr 1X ONCE IV 09/23/16 15:45 09/23/16 17:44 DC 09/23/16 15:30 Dextrose/Sodium Chloride 1,000 ml @ 200 mls/hr Q5H IV 09/23/16 15:45 09/24/16 09:14 DC 09/24/16 05:42 Levothyroxine Sodium (Synthroid) 112 mcg DAILY07 PO 09/23/16 16:00 09/24/16 05:42 Sertraline HCl (Zoloft) 50 mg DAILY PO 09/23/16 16:00 09/24/16 08:59 Pantoprazole Sodium (Protonix) 40 mg DAILYAC PO 09/23/16 16:00 09/24/16 08:59 Acetaminophen (Tylenol) 650 mg PRN Q6HRS PRN PO Pain 7/12/17 23:15 09/23/16 23:30 Potassium Chloride/Dextrose/ Sod Cl 1,000 ml @ 150 mls/hr Q6H40M IV 09/24/16 09:30 09/24/16 10:02 Potassium Chloride (Klor-Con) 10 meq TIDAFTMEAL PO 09/24/16 09:30 09/24/16 10:02 ALLERGIES ALLERGIES: Coded Allergies: naproxen (Verified Allergy, Intermediate, Hives, 12/10/14) ROS Review of System 14 point ROS conducted with pertinent positives noted above in HPI. PHYSICAL EXAM General: Alert, Oriented X3, Cooperative HEENT: Atraumatic, Mucous membr. moist/pink Lungs: Clear to auscultation, Normal air movement Heart: Normal S1, Normal S2, Other (soft systolic murmur. IRRR. Tele: AFIB with controlled ventricular rate. ) Abdomen: Soft, No tenderness Extremities: No edema, Normal pulses Skin: No significant lesion Neuro: Normal speech, Sensation intact Psych/Mental Status: Mental status NL, Mood NL MUSCULOSKELETAL: Osteoarthritic changes both hands VITALS VITALS Vital Signs Date Time Temp Pulse Resp B/P (MAP) Pulse Ox O2 Delivery O2 Flow Rate FiO2 09/24/16 07:55 Room Air 09/24/16 06:58 98.7 82 18 109/60 (76) 95 98.7 LABS Lab: Laboratory Tests Test 09/23/16 16:15 09/23/16 18:00 09/24/16 03:00 White Blood Count 6.8 x10^3/uL (4.0-11.0) Red Blood Count 4.01 x10^6/uL (4.30-5.70) Hemoglobin 12.0 g/dL (13.0-17.5) Hematocrit 34.9 % (39.0-53.0) Mean Corpuscular Volume 87 fL (79-100) Mean Corpuscular Hemoglobin 30 pg (25-35) Mean Corpuscular Hemoglobin Concent 34 g/dL (31-37) Red Cell Distribution Width 15.0 % (11.5-14.5) Platelet Count 133 x10^3/uL (140-400) Sodium Level 140 mmol/L (136-145) 144 mmol/L (136-145) Potassium Level 3.6 mmol/L (3.5-5.1) 3.0 mmol/L (3.5-5.1) Chloride Level 100 mmol/L (98-107) 106 mmol/L (98-107) Carbon Dioxide Level 21 mmol/L (21-32) 20 mmol/L (21-32) Anion Gap 19 (6-14) 18 (6-14) Blood Urea Nitrogen 213 mg/dL (8-26) 194 mg/dL (8-26) Creatinine 9.5 mg/dL (0.7-1.3) 7.0 mg/dL (0.7-1.3) Estimated GFR (Cockcroft-Gault) 5.5 7.8 BUN/Creatinine Ratio 22 (6-20) Glucose Level 101 mg/dL (70-99) 125 mg/dL (70-99) Calcium Level 7.4 mg/dL (8.5-10.1) 7.1 mg/dL (8.5-10.1) Total Bilirubin 0.6 mg/dL (0.2-1.0) Aspartate Amino Transf (AST/SGOT) 20 U/L (15-37) Alanine Aminotransferase (ALT/SGPT) 29 U/L (16-63) Alkaline Phosphatase 62 U/L (46-116) Total Protein 7.2 g/dL (6.4-8.2) Albumin 3.0 g/dL (3.4-5.0) Albumin/Globulin Ratio 0.7 (1.0-1.7) Urine Collection Type Unknown Urine Color Yellow Urine Clarity Clear Urine pH 5.0 Urine Specific [place] 1.015 Urine Protein Negative mg/dL (NEG-TRACE) Urine Glucose (UA) Negative mg/dL (NEG) Urine Ketones (Stick) Negative mg/dL (NEG) Urine Blood Negative (NEG) Urine Nitrite Negative (NEG) Urine Bilirubin Negative (NEG) Urine Urobilinogen Dipstick 0.2 mg/dL (0.2 mg/dL) Urine Leukocyte Esterase Negative (NEG) Urine RBC 0 /HPF (0-2) Urine WBC Occ /HPF (0-4) Urine Squamous Epithelial Cells Few /LPF Urine Bacteria 0 /HPF (0-FEW) Magnesium Level 2.0 mg/dL (1.8-2.4) ECHOCARDIOGRAM ECHOCARDIOGRAM <Conclusion> The left ventricle is normal size. Left ventricle systolic function is normal. The Ejection Fraction is 50-55%. There is mild concentric left ventricular hypertrophy. There is no significant aortic valvular stenosis. Doppler and Color Flow revealed no significant aortic regurgitation. Doppler and Color-flow revealed mild mitral regurgitation. Doppler and Color Flow revealed mild tricuspid regurgitation. The PA pressure was estimated at 41 mmHg. The ascending aorta is mildly dilated at 3.5 cm. DATE: 02/21/16 1306 STRESS TEST STRESS TEST Conclusion 1. Regadenoson cardioisotope stress test showed diaphragmatic attenuation artifact without any evidence for ischemia or infarct. 2. Mild global left ventricle systolic dysfunction with ejection fraction calculated at 47%. 3. Low risk for cardiac events. DATE: 02/01/15 1424 ASSESSMENT/PLAN ASSESSMENT/PLAN 1. PAFIB. rate controlled. On Amiodarone. presently in AFIB 2. Chronic diastolic HF; compensated. LVEF 50-55% as noted above. 3. Hypertension with present hypotension; improved with volume replacement 4. Hyperlipidemia; on statin 5. Acute renal failure; POA. Cr now 7. Per renal 6. Hypokalemia; replaced. Mg WNL 7. Hypothyroidism; per PCP 8. RENETTA; with CPAP Recommendations Agree with IVF replacement. Hold diuretics Hold antiHTN therapy with marginal pressures K replaced. Mg WNL. Xarelto held due to bloody stools. Consider ASA for stroke prophylaxis Discontinue Amiodarone as rhythm maintenance has failed Check echo to assess LV function Further recommendations pending diagnostics Problems: FIDELINA WAYNE APRN Sep 24, 2016 11:03
--- NOTE | 2016-09-24 11:42 | PDOC2 ---
CONSULT Date of Consult Date of Consult DATE: 09/24/16 TIME: 11:37 Reason for Consult Reason for Consult: JOSSE Referring Physician Referring Physician: CODI Identification/Chief Complaint Chief Complaint ABNORMAL LABS Problems: Source Source: Chart review, Patient History of Present Illness Reason for Visit: THIS IS A 71 YR OLD ADMITTED WHEN OP LABS SHOWED ARF. NO CKD REPORTED. PT HAS BEEN TAKING LASIX AND METOLAZONE FOR HIS LE EDEMA WHICH IS RESOLVED BUT HE HAS ALSO HAD WATERY DIARRHEA FOR THE LAST 2 WEEKS. HE WAS HYPOTENSIVE ON PRESENTATION. HE DID NOTICE A DECREASE IN UO. NO PROBLEMS EMPTYING HIS BLADDER Past Medical History Cardiovascular: AFIB, HTN, Hyperlipidemia, Other (PAD) Pulmonary: Pneumonia, Other (RENETTA) GI: GERD Psych: Depression Musculoskeletal: Osteoarthritis Endocrine: Hypothyroidism Past Surgical History Past Surgical History: Total hip replacement, Tonsillectomy Family History Family History: No Significant Social History ALCOHOL: none Lives: with Family Current Medications Current Medications Current Medications Sodium Chloride 1,000 ml @ 500 mls/hr 1X ONCE IV Last administered on 15:30; Start 09/23/16 at 15:45; Stop 09/23/16 at 17:44; Status DC Dextrose/Sodium Chloride 1,000 ml @ 200 mls/hr Q5H IV Last administered on 05:42; Start 09/23/16 at 15:45; Stop 09/24/16 at 09:14; Status DC Levothyroxine Sodium (Synthroid) 112 mcg DAILY07 PO Last administered on 05:42; Start 09/23/16 at 16:00 Sertraline HCl (Zoloft) 50 mg DAILY PO Last administered on 09/24/16 08:59; Start 09/23/16 at 16:00 Pantoprazole Sodium (Protonix) 40 mg DAILYAC PO Last administered on 09/24/16 08:59; Start 09/23/16 at 16:00 Acetaminophen (Tylenol) 650 mg PRN Q6HRS PRN PO Pain Last administered on 23:30; Start 09/23/16 at 23:15 Potassium Chloride/Dextrose/ Sod Cl 1,000 ml @ 150 mls/hr Q6H40M IV Last administered on 09/24/16 10:02; Start 09/24/16 at 09:30 Potassium Chloride (Klor-Con) 10 meq TIDAFTMEAL PO Last administered on t 10:02; Start 09/24/16 at 09:30 Active Scripts Active Lortab 5-325 mg Tablet (Hydrocodone/Acetaminophen) 1 Each Tablet 1 Tab PO PRN Q6HRS PRN Cyclobenzaprine Hcl 10 Mg Tablet 10 Mg PO TID PRN Reported Dietex Forte Capsule (Kaye/Steven/ Bt-Org Peel/[id number]) 1 Each Capsule 1 Each PO DAILY Atorvastatin Calcium 10 Mg Tablet 40 Tab PO DAILY Amiodarone Hcl 200 Mg Tablet 1 Tab PO DAILY Coumadin (Warfarin Sodium) 5 Mg Tablet 1 Tab PO 5 DAYS A WEEK Coumadin (Warfarin Sodium) 2.5 Mg Tablet 1 Tab PO TWICE WEEKLY Sertraline Hcl 50 Mg Tablet 50 Mg PO DAILY Cialis (Tadalafil) 5 Mg Tablet 20 Mg PO PRN PRN Vitamin D3 (Cholecalciferol (Vitamin D3)) 5,000 Unit Tablet 1 Tab PO DAILY Vitamin B-1 (Thiamine Mononitrate) 100 Mg Tablet 100 Mg PO Glucosamine (Glucosamine Sulfate 2KCL) 1,000 Mg Tablet 1,000 Mg PO BID Fish Oil ([place]amp[place]-3 Fatty Acids) 500 Mg Capsule 360 Mg PO TID Cinnamon (Cinnamon Bark) 500 Mg Capsule 500 Mg PO BID Centrum Silver Tablet (Multivits-Min/Fa/Lycopene/Lut) 1 Each Tablet 1 Each PO Omeprazole 40 Mg Capsule. 1 Cap PO DAILY Lisinopril 40 Mg Tablet 1 Tab PO BID Levothyroxine Sodium 112 Mcg Tablet 1 Tab PO DAILY Potassium Chloride 20 Meq Tab.er.prt 2 Tab PO DAILY Furosemide 80 Mg Tablet 1 Tab PO BID Carvedilol 25 Mg Tablet 1 Tab PO BID Allopurinol 300 Mg Tablet 1 Tab PO DAILY Allergies Allergies: Coded Allergies: naproxen (Verified Allergy, Intermediate, Hives, 12/10/14) ROS General: YES: Fatigue, Malaise, Appetite PSYCHOLOGICAL ROS: YES: Anxiety Eyes: Yes Decreased vision HEENT: YES: Heacaches Respiratory: YES: Cough Cardiovascular: yes Edema Gastrointestinal: Yes Nausea, Yes Diarrhea Genitourinary: YES Other (LOW UO) Musculoskeletal: Yes Muscular Weakness Neurological: Yes Weakness Skin: Yes Dry Skin Physical Exam General: Alert, Oriented X3, Cooperative, No acute distress HEENT: Atraumatic, PERRLA Lungs: Normal air movement Heart: Regular rate Abdomen: Normal bowel sounds, Soft Extremities: No clubbing Skin: No breakdown Neuro: Normal speech, Cranial nerves 3-12 NL Psych/Mental Status: Mental status NL, Mood NL MUSCULOSKELETAL: No deformity, No swelling Vitals VITALS Vital Signs Date Time Temp Pulse Resp B/P (MAP) Pulse Ox O2 Delivery O2 Flow Rate FiO2 09/24/16 11:00 97.6 78 18 108/49 (68) 96 Room Air 97.6 Labs Labs Laboratory Tests Test 09/23/16 16:15 09/23/16 18:00 09/24/16 03:00 White Blood Count 6.8 x10^3/uL (4.0-11.0) Red Blood Count 4.01 x10^6/uL (4.30-5.70) Hemoglobin 12.0 g/dL (13.0-17.5) Hematocrit 34.9 % (39.0-53.0) Mean Corpuscular Volume 87 fL (79-100) Mean Corpuscular Hemoglobin 30 pg (25-35) Mean Corpuscular Hemoglobin Concent 34 g/dL (31-37) Red Cell Distribution Width 15.0 % (11.5-14.5) Platelet Count 133 x10^3/uL (140-400) Sodium Level 140 mmol/L (136-145) 144 mmol/L (136-145) Potassium Level 3.6 mmol/L (3.5-5.1) 3.0 mmol/L (3.5-5.1) Chloride Level 100 mmol/L (98-107) 106 mmol/L (98-107) Carbon Dioxide Level 21 mmol/L (21-32) 20 mmol/L (21-32) Anion Gap 19 (6-14) 18 (6-14) Blood Urea Nitrogen 213 mg/dL (8-26) 194 mg/dL (8-26) Creatinine 9.5 mg/dL (0.7-1.3) 7.0 mg/dL (0.7-1.3) Estimated GFR (Cockcroft-Gault) 5.5 7.8 BUN/Creatinine Ratio 22 (6-20) Glucose Level 101 mg/dL (70-99) 125 mg/dL (70-99) Calcium Level 7.4 mg/dL (8.5-10.1) 7.1 mg/dL (8.5-10.1) Total Bilirubin 0.6 mg/dL (0.2-1.0) Aspartate Amino Transf (AST/SGOT) 20 U/L (15-37) Alanine Aminotransferase (ALT/SGPT) 29 U/L (16-63) Alkaline Phosphatase 62 U/L (46-116) Total Protein 7.2 g/dL (6.4-8.2) Albumin 3.0 g/dL (3.4-5.0) Albumin/Globulin Ratio 0.7 (1.0-1.7) Urine Collection Type Unknown Urine Color Yellow Urine Clarity Clear Urine pH 5.0 Urine Specific [place] 1.015 Urine Protein Negative mg/dL (NEG-TRACE) Urine Glucose (UA) Negative mg/dL (NEG) Urine Ketones (Stick) Negative mg/dL (NEG) Urine Blood Negative (NEG) Urine Nitrite Negative (NEG) Urine Bilirubin Negative (NEG) Urine Urobilinogen Dipstick 0.2 mg/dL (0.2 mg/dL) Urine Leukocyte Esterase Negative (NEG) Urine RBC 0 /HPF (0-2) Urine WBC Occ /HPF (0-4) Urine Squamous Epithelial Cells Few /LPF Urine Bacteria 0 /HPF (0-FEW) Magnesium Level 2.0 mg/dL (1.8-2.4) Laboratory Tests Test 09/23/16 16:15 09/23/16 18:00 09/24/16 03:00 White Blood Count 6.8 x10^3/uL (4.0-11.0) Red Blood Count 4.01 x10^6/uL (4.30-5.70) Hemoglobin 12.0 g/dL (13.0-17.5) Hematocrit 34.9 % (39.0-53.0) Mean Corpuscular Volume 87 fL (79-100) Mean Corpuscular Hemoglobin 30 pg (25-35) Mean Corpuscular Hemoglobin Concent 34 g/dL (31-37) Red Cell Distribution Width 15.0 % (11.5-14.5) Platelet Count 133 x10^3/uL (140-400) Sodium Level 140 mmol/L (136-145) 144 mmol/L (136-145) Potassium Level 3.6 mmol/L (3.5-5.1) 3.0 mmol/L (3.5-5.1) Chloride Level 100 mmol/L (98-107) 106 mmol/L (98-107) Carbon Dioxide Level 21 mmol/L (21-32) 20 mmol/L (21-32) Anion Gap 19 (6-14) 18 (6-14) Blood Urea Nitrogen 213 mg/dL (8-26) 194 mg/dL (8-26) Creatinine 9.5 mg/dL (0.7-1.3) 7.0 mg/dL (0.7-1.3) Estimated GFR (Cockcroft-Gault) 5.5 7.8 BUN/Creatinine Ratio 22 (6-20) Glucose Level 101 mg/dL (70-99) 125 mg/dL (70-99) Calcium Level 7.4 mg/dL (8.5-10.1) 7.1 mg/dL (8.5-10.1) Total Bilirubin 0.6 mg/dL (0.2-1.0) Aspartate Amino Transf (AST/SGOT) 20 U/L (15-37) Alanine Aminotransferase (ALT/SGPT) 29 U/L (16-63) Alkaline Phosphatase 62 U/L (46-116) Total Protein 7.2 g/dL (6.4-8.2) Albumin 3.0 g/dL (3.4-5.0) Albumin/Globulin Ratio 0.7 (1.0-1.7) Urine Collection Type Unknown Urine Color Yellow Urine Clarity Clear Urine pH 5.0 Urine Specific [place] 1.015 Urine Protein Negative mg/dL (NEG-TRACE) Urine Glucose (UA) Negative mg/dL (NEG) Urine Ketones (Stick) Negative mg/dL (NEG) Urine Blood Negative (NEG) Urine Nitrite Negative (NEG) Urine Bilirubin Negative (NEG) Urine Urobilinogen Dipstick 0.2 mg/dL (0.2 mg/dL) Urine Leukocyte Esterase Negative (NEG) Urine RBC 0 /HPF (0-2) Urine WBC Occ /HPF (0-4) Urine Squamous Epithelial Cells Few /LPF Urine Bacteria 0 /HPF (0-FEW) Magnesium Level 2.0 mg/dL (1.8-2.4) Assessment/Plan Assessment/Plan IMP DEHYDRATION HYPOTENSION DIARRHEA JOSSE HYPOKALEMIA PLAN VOLUME REPLETE RENAL SONOGRAM MENON HOLD HIS DIURETICS AND ANTIHYPERTENSIVES CORRECT ELECTROLYTES TONY MA MD Sep 24, 2016 11:42
[2016-09-24 15:00] VITALS: BP 89/53
--- NOTE | 2016-09-24 16:22 | CARD ---
APPROVED REPORT EXAM: Two-dimensional and M-mode echocardiogram with Doppler and color Doppler. Other Information Quality : FairHR: 87bpm Rhythm : Atrial Fibrillation INDICATION Atrial Fibrillation 2D DIMENSIONS RVDd3.9 (2.9-3.5cm)Left Atrium(2D)5.3 (1.6-4.0cm) IVSd1.3 (0.7-1.1cm)Aortic Root(2D)3.0 (2.0-3.7cm) LVDd4.7 (3.9-5.9cm)LVOT Diameter2.3 (1.8-2.4cm) PWd1.2 (0.7-1.1cm)LVDs4.0 (2.5-4.0cm) FS (%) 15.7 %SV34.5 ml Aortic Valve AoV Peak Rudi.128.2cm/sAoV VTI22.8cm AO Peak GR.6.6mmHgLVOT Peak Rudi.89.0cm/s AO Mean GR.4mmHgAVA (VMAX)2.96cm2 Mitral Valve MV E Viuwomhx76.7cm/sMV E Peak Gr.3mmHg MV A Velocity0.1cm/sMV E Mean Gr.1mmHg E/A Klgxb529.0 Pulmonary Valve PV Peak Ucenhsns921.6cm/s Tricuspid Valve TR P. Pagegpyw058ox/sTR Peak Gr.20mmHg LEFT VENTRICLE Technically difficult study. The left ventricle is normal size. There is mild concentric left ventric ular hypertrophy. Left ventricle systolic function is mildly impaired. The Ejection Fraction is estim ated at 45%. There is mild global hypokinesis of the left ventricle. Atrial fibrillation noted, unabl e to adequately assess left ventricular diastolic function. No left ventricle thrombus noted on this study. RIGHT VENTRICLE The right ventricle is mildly dilated. There is normal right ventricular wall thickness. The right ve ntricular systolic function is normal. ATRIA The left atrium is mild to moderately dilated. The right atrium size is normal. The interatrial septu m is intact with no evidence for an atrial septal defect or patent foramen ovale as noted on 2-D or D oppler imaging. AORTIC VALVE The aortic valve is not well visualized but appears to opens well. Doppler and Color Flow revealed no significant aortic regurgitation. There is no significant aortic valvular stenosis. MITRAL VALVE The mitral valve is not well visualized but appears to opens well. There is no evidence of mitral elijah ve prolapse. There is no mitral valve stenosis. Doppler and Color Flow revealed trace mitral valve re gurgitation. TRICUSPID VALVE Doppler and Color Flow revealed trace to mild tricuspid regurgitation. The pulmonary artery systolic pressure is estimated at 23 mmHg. PULMONIC VALVE The pulmonary valve is not well visualized but appears to opens well. Doppler and Color Flow revealed pulmonic valvular regurgitation. There is no pulmonic valvular stenosis by spectral Doppler. GREAT VESSELS The aortic root is normal in size. The ascending aorta is normal in size. The pulmonary artery is not visualized. The IVC was obscured, unable to assess. PERICARDIAL EFFUSION There is no evidence of significant pericardial effusion. Critical Notification Critical Value: No <Conclusion> Technically difficult study. The left ventricle is normal size. Left ventricle systolic function is mildly impaired. The Ejection Fraction is estimated at 45%. There is mild concentric left ventricular hypertrophy. There is no significant aortic valvular stenosis. Doppler and Color Flow revealed no significant aortic regurgitation. Doppler and Color Flow revealed trace mitral valve regurgitation. Doppler and Color Flow revealed trace to mild tricuspid regurgitation. The pulmonary artery systolic pressure is estimated at 23 mmHg.
[2016-09-24] MEDS: ASPIRIN ENTERIC COATED 81 MG TABLET.DR. PO SCH (16:39)
[2016-09-24 19:00] VITALS: BP 125/64
[2016-09-24 23:00] VITALS: BP 106/60
[2016-09-25] MEDS: POTASSIUM CL 20MEQ D5-0.9%NACL 1,000 ML IV SCH ×2 (00:50→07:54)
[2016-09-25 03:00] VITALS: BP 112/58
[2016-09-25 06:30] LABS: MAGNESIUM 1.8 mg/dL (1.8-2.4); PHOSPHORUS 3.7 mg/dL (2.6-4.7)
[2016-09-25] MEDS: LEVOTHYROXINE 112 MCG TABLET PO SCH (06:41)
[2016-09-25 07:00] VITALS: BP 109/65
[2016-09-25 07:19] LABS: CALCIUM 8.3 mg/dL (8.5-10.1); CREATININE 2.9 mg/dL (0.7-1.3); GFR 21.6; POTASSIUM 3.4 mmol/L (3.5-5.1)
[2016-09-25 07:46] LABS: HEMATOCRIT 37.4 % (39.0-53.0); HEMOGLOBIN 12.7 g/dL (13.0-17.5); RED BLOOD COUNT 4.27 x10^6/uL (4.30-5.70); RED CELL DISTRIBUTION WIDTH 15.4 % (11.5-14.5); WHITE BLOOD COUNT 5.1 x10^3/uL (4.0-11.0)
[2016-09-25] MEDS: PANTOPRAZOLE 40 MG TABLET.DR. PO SCH (07:54)
[2016-09-25] MEDS: POTASSIUM CL 20MEQ D5-0.45NACL 1,000 ML IV SCH ×2 (08:45→19:51)
--- NOTE | 2016-09-25 08:59 | PDOC ---
Provider Note Provider Note feels better, great output, no new sxs- exam same - creat down great to 2.9, K+ 3.4- will reduce iv rate, hypotonic re Na+ 150, dc vasquez- maybe home 1-2 days dependant on labs- resume xarelto re AF, as c diff is neg CAMPOS KINCAID MD Sep 25, 2016 08:59
[2016-09-25] MEDS: SERTRALINE 50 MG TABLET. PO SCH (09:36)
[2016-09-25] MEDS: ASPIRIN ENTERIC COATED 81 MG TABLET.DR. PO SCH (09:37)
[2016-09-25] MEDS: POTASSIUM CHLORIDE 10 MEQ TABLET.ER. PO SCH ×3 (09:37→17:16)
[2016-09-25 11:00] VITALS: BP 111/65
--- NOTE | 2016-09-25 11:35 | PDOC ---
Renal-Progress Notes Subjective Notes Notes NONE History of Present Illness Hx of present illness STABLE Vitals Vitals Vital Signs Date Time Temp Pulse Resp B/P (MAP) Pulse Ox O2 Delivery O2 Flow Rate FiO2 09/25/16 03:00 98.0 82 18 112/58 (76) 98 Room Air 98.0 Weight Weight [ ] I.O. Intake and Output Intake and Output 09/25/16 07:00 Intake Total 1000 ml Output Total 6350 ml Balance -5350 ml Intake Oral 1000 ml Output Urine Total 6350 ml # Bowel Movements 1 Labs Labs Laboratory Tests Test 09/25/16 04:00 White Blood Count 5.1 x10^3/uL (4.0-11.0) Red Blood Count 4.27 x10^6/uL (4.30-5.70) Hemoglobin 12.7 g/dL (13.0-17.5) Hematocrit 37.4 % (39.0-53.0) Mean Corpuscular Volume 88 fL (79-100) Mean Corpuscular Hemoglobin 30 pg (25-35) Mean Corpuscular Hemoglobin Concent 34 g/dL (31-37) Red Cell Distribution Width 15.4 % (11.5-14.5) Platelet Count 141 x10^3/uL (140-400) Sodium Level 150 mmol/L (136-145) Potassium Level 3.4 mmol/L (3.5-5.1) Chloride Level 114 mmol/L (98-107) Carbon Dioxide Level 22 mmol/L (21-32) Anion Gap 14 (6-14) Blood Urea Nitrogen 127 mg/dL (8-26) Creatinine 2.9 mg/dL (0.7-1.3) Estimated GFR (Cockcroft-Gault) 21.6 Glucose Level 116 mg/dL (70-99) Calcium Level 8.3 mg/dL (8.5-10.1) Phosphorus Level 3.7 mg/dL (2.6-4.7) Magnesium Level 1.8 mg/dL (1.8-2.4) Review of Systems Constitutional: yes: malaise, weakness, oriented Ears/Nose/Throat: Yes: no symptom reported Eyes: Yes: no symptom reported Pulmonary: Yes no symptom reported Gastrointestional: Yes: diarrhea Genitourinary: Yes: no symptom reported Musculoskeletal: Yes: muscle stiffness Skin: Yes no symptom reported Endocrine: Yes: no symptom reported Physical Exam General Appearance: no apparent distress Skin: warm Respiratory: bilateral CTA Heart: S1S2, RRR Abdomen: soft, bowel sounds present Genitourinary: bladder flat Extremities: pulses present Neurology: alert, oriented Assessment Assessment IMP DEHYDRATION JOSSE-IMPROVING HYPOKALEMIA HYPONATREMIA PLAN REPLACE K HYPOTONIC SALINE TONY MA MD Sep 25, 2016 11:35
--- NOTE | 2016-09-25 14:35 | PDOC ---
CARDIO Progress Notes Date and Time Date of Service 09/25/16 Time of Evaluation 1245 Subjective Subjective: No Chest Pain, No Palpitations, No Dizziness, Other (mild SOA. No orthopnea ) Vitals Vitals Vital Signs Date Time Temp Pulse Resp B/P (MAP) Pulse Ox O2 Delivery O2 Flow Rate FiO2 09/25/16 11:00 80 18 111/65 (80) 99 Room Air 09/25/16 07:00 97.6 97.6 Weight Weight [ ] Input and Output Intake and Output Intake and Output 09/25/16 07:00 Intake Total 1000 ml Output Total 6350 ml Balance -5350 ml Intake Oral 1000 ml Output Urine Total 6350 ml # Bowel Movements 1 Laboratory Labs Laboratory Tests Test 09/25/16 04:00 White Blood Count 5.1 x10^3/uL (4.0-11.0) Red Blood Count 4.27 x10^6/uL (4.30-5.70) Hemoglobin 12.7 g/dL (13.0-17.5) Hematocrit 37.4 % (39.0-53.0) Mean Corpuscular Volume 88 fL (79-100) Mean Corpuscular Hemoglobin 30 pg (25-35) Mean Corpuscular Hemoglobin Concent 34 g/dL (31-37) Red Cell Distribution Width 15.4 % (11.5-14.5) Platelet Count 141 x10^3/uL (140-400) Sodium Level 150 mmol/L (136-145) Potassium Level 3.4 mmol/L (3.5-5.1) Chloride Level 114 mmol/L (98-107) Carbon Dioxide Level 22 mmol/L (21-32) Anion Gap 14 (6-14) Blood Urea Nitrogen 127 mg/dL (8-26) Creatinine 2.9 mg/dL (0.7-1.3) Estimated GFR (Cockcroft-Gault) 21.6 Glucose Level 116 mg/dL (70-99) Calcium Level 8.3 mg/dL (8.5-10.1) Phosphorus Level 3.7 mg/dL (2.6-4.7) Magnesium Level 1.8 mg/dL (1.8-2.4) Review of Systems Constitutional: yes: malaise, weakness, oriented Ears/Nose/Throat: Yes: no symptom reported Eyes: Yes: no symptom reported Pulmonary: Yes no symptom reported Gastrointestional: Yes: diarrhea Genitourinary: Yes: no symptom reported Musculoskeletal: Yes: muscle stiffness Skin: Yes no symptom reported Endocrine: Yes: no symptom reported Physical Exam HEENT: Neck Supple W Full Motion Chest: Symmetric LUNGS: Clear to Auscultation, Other (diminished bases ) Heart: S1S2, no murmurs, irregularly irregular (tele AFIB with controlled ventricular rate ) Abdomen: Soft N/T, Other (truncal obesity ) Extremities: No Edema, No Calf Tenderness Neurology: alert, oriented, follow commands Assessment Assessment 1. PAFIB. rate controlled. remains in AFIB 2. Chronic diastolic HF; compensated. LVEF 50-55% previously, now 45% per echo 3. Hypertension with present hypotension; improved with volume replacement. 4. Hyperlipidemia; on statin 5. Acute renal failure; POA. improving, Cr now 2.9. Per renal 6. Hypokalemia; replaced. Mg WNL 7. Hypothyroidism; per PCP 8. RENETTA; with CPAP Recommendations Continue to hold diuretics and antiHTN therapy. IV hydration ongoing Consider addition of BB for rate control when BP consistently adequate Xarelto held due to hematochezia. ASA added for stroke prophylaxis Outpatient f/u with consideration of further ischemic workup. Continue supportive care. FIDELINA WAYNE APRN Sep 25, 2016 14:35
[2016-09-25 15:00] VITALS: BP 151/63
[2016-09-25] MEDS ORDERED: RIVAROXABAN 15 MG TABLET. PO SCH (17:00)
[2016-09-25 19:05] VITALS: BP 120/73
[2016-09-25 23:00] VITALS: BP 110/71
[2016-09-26 03:15] VITALS: BP 96/63
[2016-09-26] MEDS: ACETAMINOPHEN 325 MG TABLET. PO PRN (04:02)
[2016-09-26 05:37] LABS: MAGNESIUM 1.7 mg/dL (1.8-2.4); PHOSPHORUS 3.1 mg/dL (2.6-4.7)
[2016-09-26 05:58] LABS: CALCIUM 8.6 mg/dL (8.5-10.1); CREATININE 1.7 mg/dL (0.7-1.3); GFR 39.9
[2016-09-26 07:30] VITALS: BP 118/61
[2016-09-26] MEDS: LEVOTHYROXINE 112 MCG TABLET PO SCH (07:45)
[2016-09-26] MEDS: ASPIRIN ENTERIC COATED 81 MG TABLET.DR. PO SCH (08:28)
[2016-09-26] MEDS: SERTRALINE 50 MG TABLET. PO SCH (08:28)
[2016-09-26] MEDS: POTASSIUM CHLORIDE 10 MEQ TABLET.ER. PO SCH ×3 (08:28→17:37)
[2016-09-26] MEDS: PANTOPRAZOLE 40 MG TABLET.DR. PO SCH (08:28)
[2016-09-26] MEDS: POTASSIUM CL 20MEQ D5-0.45NACL 1,000 ML IV SCH ×2 (09:29→13:32)
--- NOTE | 2016-09-26 09:47 | PDOC ---
GENERAL General: vss and afebrile. awake and alert and feeling better. chest clear. heart irregular with rate 90 at time my exam. BUN decreased to 69 and creatinine down to 1.7 this am. ef 45% on echo this stay. Sodium still elevated at 153. ongoing hydration per renal. continue same. Problems: VITAL SIGNS Vital Signs: Vital Signs Date Time Temp Pulse Resp B/P (MAP) Pulse Ox O2 Delivery O2 Flow Rate FiO2 09/26/16 08:00 Room Air 2.0 09/26/16 07:30 96.3 78 18 118/61 (80) 99 96.3 I & O I & O Intake and Output 09/26/16 07:00 Intake Total 4000 ml Output Total 1550 ml Balance 2450 ml Intake Oral 3100 ml IV Total 900 ml Output Urine Total 1550 ml # Voids 1 ALLERGIES Allergies: Allergies Coded Allergies Type Severity Reaction Last Updated Verified naproxen Allergy Intermediate Hives 12/10/14 Yes MEDS Medications: Current Medications Medications (Trade) Dose Ordered Sig/Bhumika Start Time Stop Time Status Last Admin Dose Admin Acetaminophen (Tylenol) 650 mg PRN Q6HRS PRN 09/23/16 23:15 09/26/16 04:02 650 MG Aspirin (Ecotrin) 81 mg DAILYWBKFT 09/24/16 16:30 09/26/16 08:28 81 MG Dextrose/Sodium Chloride 1,000 ml @ 200 mls/hr Q5H 09/23/16 15:45 09/24/16 09:14 DC 09/24/16 05:42 200 MLS/HR Levothyroxine Sodium (Synthroid) 112 mcg DAILY07 09/23/16 16:00 09/26/16 07:45 112 MCG Pantoprazole Sodium (Protonix) 40 mg DAILYAC 09/23/16 16:00 09/26/16 08:28 40 MG Potassium Chloride/Dextrose/ Sod Cl 1,000 ml @ 100 mls/hr Q10H 09/25/16 08:45 09/26/16 09:29 100 MLS/HR Potassium Chloride (Klor-Con) 10 meq TIDAFTMEAL 09/24/16 09:30 09/26/16 08:28 10 MEQ Rivaroxaban (Xarelto) 15 mg DAILYWSUP 09/25/16 17:00 09/25/16 17:00 DC Sertraline HCl (Zoloft) 50 mg DAILY 09/23/16 16:00 09/26/16 08:28 50 MG Sodium Chloride 1,000 ml @ 500 mls/hr 1X ONCE 09/23/16 15:45 09/23/16 17:44 DC 09/23/16 15:30 500 MLS/HR LAB Lab: Laboratory Tests Test 09/26/16 03:45 Sodium Level 153 mmol/L (136-145) Potassium Level 4.0 mmol/L (3.5-5.1) Chloride Level 116 mmol/L (98-107) Carbon Dioxide Level 27 mmol/L (21-32) Anion Gap 10 (6-14) Blood Urea Nitrogen 69 mg/dL (8-26) Creatinine 1.7 mg/dL (0.7-1.3) Estimated GFR (Cockcroft-Gault) 39.9 Glucose Level 105 mg/dL (70-99) Calcium Level 8.6 mg/dL (8.5-10.1) Phosphorus Level 3.1 mg/dL (2.6-4.7) Magnesium Level 1.7 mg/dL (1.8-2.4) PIA SERNA MD Sep 26, 2016 09:47
[2016-09-26 10:30] VITALS: BP 102/62
--- NOTE | 2016-09-26 11:28 | PDOC ---
Renal-Progress Notes Subjective Notes Notes STILL HAVING DIARRHEA BUT FEELING BETTER History of Present Illness Hx of present illness STABLE Vitals Vitals Vital Signs Date Time Temp Pulse Resp B/P (MAP) Pulse Ox O2 Delivery O2 Flow Rate FiO2 09/26/16 08:00 Room Air 2.0 09/26/16 07:30 96.3 78 18 118/61 (80) 99 96.3 Weight Weight [ ] I.O. Intake and Output Intake and Output 09/26/16 07:00 Intake Total 4000 ml Output Total 1550 ml Balance 2450 ml Intake Oral 3100 ml IV Total 900 ml Output Urine Total 1550 ml # Voids 1 Labs Labs Laboratory Tests Test 09/26/16 03:45 Sodium Level 153 mmol/L (136-145) Potassium Level 4.0 mmol/L (3.5-5.1) Chloride Level 116 mmol/L (98-107) Carbon Dioxide Level 27 mmol/L (21-32) Anion Gap 10 (6-14) Blood Urea Nitrogen 69 mg/dL (8-26) Creatinine 1.7 mg/dL (0.7-1.3) Estimated GFR (Cockcroft-Gault) 39.9 Glucose Level 105 mg/dL (70-99) Calcium Level 8.6 mg/dL (8.5-10.1) Phosphorus Level 3.1 mg/dL (2.6-4.7) Magnesium Level 1.7 mg/dL (1.8-2.4) Review of Systems Constitutional: yes: malaise, weakness, oriented Ears/Nose/Throat: Yes: no symptom reported Eyes: Yes: no symptom reported Pulmonary: Yes no symptom reported Gastrointestional: Yes: diarrhea Genitourinary: Yes: no symptom reported Musculoskeletal: Yes: muscle stiffness Skin: Yes no symptom reported Endocrine: Yes: no symptom reported Physical Exam General Appearance: no apparent distress Skin: warm Respiratory: bilateral CTA Heart: S1S2, RRR Abdomen: soft, bowel sounds present Genitourinary: bladder flat Extremities: pulses present Neurology: alert, oriented, follow commands Assessment Assessment IMP DEHYDRATION JOSSE-IMPROVING HYPOKALEMIA-BETTER HYPERNATREMIA PLAN HYPOTONIC SALINE INCREASE IVF RATE TONY MA MD Sep 26, 2016 11:28
[2016-09-26] MEDS ORDERED: MAGNESIUM SULFATE 2GM 50 ML IV ONE (11:30)
[2016-09-26 15:45] VITALS: BP 145/84
[2016-09-26 19:29] VITALS: BP 124/59
[2016-09-26 23:15] VITALS: BP 127/70
[2016-09-27] VITALS (8 sets, daily range): BP systolic 107–136; BP diastolic 64–85
[2016-09-27] MEDS: POTASSIUM CL 20MEQ D5-0.45NACL 1,000 ML IV SCH ×5 (01:45→23:06)
[2016-09-27] MEDS: ACETAMINOPHEN 325 MG TABLET. PO PRN (06:14)
[2016-09-27] MEDS: LEVOTHYROXINE 112 MCG TABLET PO SCH (06:14)
[2016-09-27] MEDS: POTASSIUM CHLORIDE 10 MEQ TABLET.ER. PO SCH ×3 (07:52→17:02)
[2016-09-27] MEDS: ASPIRIN ENTERIC COATED 81 MG TABLET.DR. PO SCH (07:52)
[2016-09-27] MEDS: SERTRALINE 50 MG TABLET. PO SCH (07:53)
[2016-09-27] MEDS: PANTOPRAZOLE 40 MG TABLET.DR. PO SCH (07:53)
[2016-09-27 08:42] LABS: CALCIUM 8.2 mg/dL (8.5-10.1); CREATININE 1.3 mg/dL (0.7-1.3); GFR 54.4; POTASSIUM 4.6 mmol/L (3.5-5.1)
[2016-09-27] MEDS: PSEUDOEPHEDRINE 30 MG TABLET. PO PRN (09:34)
--- NOTE | 2016-09-27 12:02 | PDOC ---
GENERAL General: vss and afebrile. awake and alert. no edema but marked venous stasis changes. chest clear. remains a-fib with rate of about 100 currently. BUN decreased to 34 and creatinine down to 1.3 this am. Na down to 147 this am. ongoing ivf's at 150cc/hr. suspect he will be ready for dc tomorrow with decision then regarding diuretics at home but suspect he doesn't need much and edema primarily venous stasis in nature as "always goes down at night". Problems: VITAL SIGNS Vital Signs: Vital Signs Date Time Temp Pulse Resp B/P (MAP) Pulse Ox O2 Delivery O2 Flow Rate FiO2 09/27/16 08:15 Room Air 2.0 09/27/16 07:00 98.9 89 16 131/72 (91) 96 98.9 I & O I & O Intake and Output 09/27/16 07:00 Intake Total 2340 ml Output Total 1875 ml Balance 465 ml Intake Oral 840 ml Other 1500 ml Output Urine Total 1875 ml # Voids 3 # Bowel Movements 2 ALLERGIES Allergies: Allergies Coded Allergies Type Severity Reaction Last Updated Verified naproxen Allergy Intermediate Hives 12/10/14 Yes MEDS Medications: Current Medications Medications (Trade) Dose Ordered Sig/Bhumika Start Time Stop Time Status Last Admin Dose Admin Acetaminophen (Tylenol) 650 mg PRN Q6HRS PRN 09/23/16 23:15 09/27/16 06:14 650 MG Aspirin (Ecotrin) 81 mg DAILYWBKFT 09/24/16 16:30 09/27/16 07:52 81 MG Dextrose/Sodium Chloride 1,000 ml @ 200 mls/hr Q5H 09/23/16 15:45 09/24/16 09:14 DC 09/24/16 05:42 200 MLS/HR Levothyroxine Sodium (Synthroid) 112 mcg DAILY07 09/23/16 16:00 09/27/16 06:14 112 MCG Magnesium Sulfate/ Dextrose 50 ml @ 25 mls/hr 1X ONCE 09/26/16 11:30 09/26/16 13:29 DC 09/26/16 11:59 25 MLS/HR Pantoprazole Sodium (Protonix) 40 mg DAILYAC 09/23/16 16:00 09/27/16 07:53 40 MG Potassium Chloride/Dextrose/ Sod Cl 1,000 ml @ 150 mls/hr Q6H40M 09/25/16 08:45 09/27/16 07:52 150 MLS/HR Potassium Chloride (Klor-Con) 10 meq TIDAFTMEAL 09/24/16 09:30 09/27/16 07:52 10 MEQ Pseudoephedrine HCl (Sudafed) 60 mg PRN TID PRN 09/27/16 09:30 09/27/16 09:34 60 MG Rivaroxaban (Xarelto) 15 mg DAILYWSUP 09/25/16 17:00 09/25/16 17:00 DC Sertraline HCl (Zoloft) 50 mg DAILY 09/23/16 16:00 09/27/16 07:53 50 MG Sodium Chloride 1,000 ml @ 500 mls/hr 1X ONCE 09/23/16 15:45 09/23/16 17:44 DC 09/23/16 15:30 500 MLS/HR LAB Lab: Laboratory Tests Test 09/27/16 08:10 Sodium Level 147 mmol/L (136-145) Potassium Level 4.6 mmol/L (3.5-5.1) Chloride Level 115 mmol/L (98-107) Carbon Dioxide Level 26 mmol/L (21-32) Anion Gap 6 (6-14) Blood Urea Nitrogen 34 mg/dL (8-26) Creatinine 1.3 mg/dL (0.7-1.3) Estimated GFR (Cockcroft-Gault) 54.4 Glucose Level 108 mg/dL (70-99) Calcium Level 8.2 mg/dL (8.5-10.1) PIA SERNA MD Sep 27, 2016 12:02
--- NOTE | 2016-09-27 12:29 | PDOC ---
Renal-Progress Notes Subjective Notes Notes NO CHANGE History of Present Illness Hx of present illness STABLE Vitals Vitals Vital Signs Date Time Temp Pulse Resp B/P (MAP) Pulse Ox O2 Delivery O2 Flow Rate FiO2 09/27/16 11:00 98.5 16 16 133/82 (99) 99 Nasal Cannula 2.0 98.5 Weight Weight [ ] I.O. Intake and Output Intake and Output 09/27/16 07:00 Intake Total 2340 ml Output Total 1875 ml Balance 465 ml Intake Oral 840 ml Other 1500 ml Output Urine Total 1875 ml # Voids 3 # Bowel Movements 2 Labs Labs Laboratory Tests Test 09/27/16 08:10 Sodium Level 147 mmol/L (136-145) Potassium Level 4.6 mmol/L (3.5-5.1) Chloride Level 115 mmol/L (98-107) Carbon Dioxide Level 26 mmol/L (21-32) Anion Gap 6 (6-14) Blood Urea Nitrogen 34 mg/dL (8-26) Creatinine 1.3 mg/dL (0.7-1.3) Estimated GFR (Cockcroft-Gault) 54.4 Glucose Level 108 mg/dL (70-99) Calcium Level 8.2 mg/dL (8.5-10.1) Review of Systems Constitutional: yes: malaise, weakness, oriented Ears/Nose/Throat: Yes: no symptom reported Eyes: Yes: no symptom reported Pulmonary: Yes no symptom reported Gastrointestional: Yes: diarrhea Genitourinary: Yes: no symptom reported Musculoskeletal: Yes: muscle stiffness Skin: Yes no symptom reported Endocrine: Yes: no symptom reported Physical Exam General Appearance: no apparent distress Skin: warm Respiratory: bilateral CTA Heart: S1S2, RRR Abdomen: soft, bowel sounds present Genitourinary: bladder flat Extremities: pulses present Neurology: alert, oriented, follow commands Assessment Assessment IMP DEHYDRATION JOSSE-IMPROVING HYPOKALEMIA-BETTER HYPERNATREMIA-BETTER LOW MAG PLAN HYPOTONIC SALINE REPLACE MAG TONY MA MD Sep 27, 2016 12:29
[2016-09-27] MEDS ORDERED: MAGNESIUM SULFATE 2GM 50 ML IV ONE (13:00)
[2016-09-28] MEDS: PSEUDOEPHEDRINE 30 MG TABLET. PO PRN (02:23)
[2016-09-28 03:05] VITALS: BP 126/71
[2016-09-28 05:34] LABS: MAGNESIUM 1.6 mg/dL (1.8-2.4); PHOSPHORUS 1.7 mg/dL (2.6-4.7)
[2016-09-28 05:45] LABS: CALCIUM 7.7 mg/dL (8.5-10.1); CREATININE 1.2 mg/dL (0.7-1.3); GFR 59.7; POTASSIUM 4.4 mmol/L (3.5-5.1)
[2016-09-28] MEDS: POTASSIUM CL 20MEQ D5-0.45NACL 1,000 ML IV SCH (06:21)
[2016-09-28 07:00] VITALS: BP 133/79
--- NOTE | 2016-09-28 08:15 | DISCH ---
DISCHARGE INSTRUCTIONS Condition on Discharge Condition on Discharge: Stable Activity After Discharge Activity Instructions for Disc: No restrictions Diet after Discharge Diet after Discharge: Low Sodium 4 gm Follow-Up Follow up with: dr souza 2 weeks CAMPOS KINCAID MD Sep 28, 2016 08:15
--- NOTE | 2016-09-28 08:27 | PDOC3 ---
Discharge Summary Visit Information Date of Admission: Sep 24, 2016 Date of Discharge: Sep 28, 2016 Final Diagnosis acute renal failure, diretic induced Brief Hospital Course Allergies Allergies Coded Allergies Type Severity Reaction Last Updated Verified naproxen Allergy Intermediate Hives 12/10/14 Yes Vital Signs Vital Signs Date Time Temp Pulse Resp B/P (MAP) Pulse Ox O2 Delivery O2 Flow Rate FiO2 09/28/16 07:00 98.0 102 22 133/79 (97) 96 Room Air 98.0 09/27/16 11:00 2.0 Lab Results Laboratory Tests Test 09/27/16 08:10 09/28/16 03:25 Sodium Level 147 mmol/L (136-145) 146 mmol/L (136-145) Potassium Level 4.6 mmol/L (3.5-5.1) 4.4 mmol/L (3.5-5.1) Chloride Level 115 mmol/L (98-107) 113 mmol/L (98-107) Carbon Dioxide Level 26 mmol/L (21-32) 24 mmol/L (21-32) Anion Gap 6 (6-14) 9 (6-14) Blood Urea Nitrogen 34 mg/dL (8-26) 20 mg/dL (8-26) Creatinine 1.3 mg/dL (0.7-1.3) 1.2 mg/dL (0.7-1.3) Estimated GFR (Cockcroft-Gault) 54.4 59.7 Glucose Level 108 mg/dL (70-99) 128 mg/dL (70-99) Calcium Level 8.2 mg/dL (8.5-10.1) 7.7 mg/dL (8.5-10.1) Phosphorus Level 1.7 mg/dL (2.6-4.7) Magnesium Level 1.6 mg/dL (1.8-2.4) Laboratory Tests Test 09/28/16 03:25 Sodium Level 146 mmol/L (136-145) Potassium Level 4.4 mmol/L (3.5-5.1) Chloride Level 113 mmol/L (98-107) Carbon Dioxide Level 24 mmol/L (21-32) Anion Gap 9 (6-14) Blood Urea Nitrogen 20 mg/dL (8-26) Creatinine 1.2 mg/dL (0.7-1.3) Estimated GFR (Cockcroft-Gault) 59.7 Glucose Level 128 mg/dL (70-99) Calcium Level 7.7 mg/dL (8.5-10.1) Phosphorus Level 1.7 mg/dL (2.6-4.7) Magnesium Level 1.6 mg/dL (1.8-2.4) Brief Hospital Course Mr. Anderson is a 71 old [sex] who presented with [ ]creat 9, bun 200 from 2 home diuretics- renal sono ok, iv hydration caused rapid reversal of arf, creat back to baseline 1 , rest of labs ok- c diff neg, no more diarrhea or blood- will no longer take metolozone at home, back on xarelto re AF- echo same EF 45% , valves ok- Discharge Information Condition at Discharge: Improved Follow Up: Weeks (2) Disposition/Orders: D/C to Home Scheduled Allopurinol (Allopurinol), 1 TAB PO DAILY, (Reported) Amiodarone Hcl (Amiodarone Hcl), 1 TAB PO DAILY, (Reported) Atorvastatin Calcium (Atorvastatin Calcium), 40 TAB PO DAILY, (Reported) Carvedilol (Carvedilol), 1 TAB PO BID, (Reported) Cholecalciferol (Vitamin D3) (Vitamin D3), 1 TAB PO DAILY, (Reported) Cinnamon Bark (Cinnamon), 500 MG PO BID, (Reported) Furosemide (Furosemide), 1 TAB PO BID, (Reported) Glucosamine Sulfate 2KCL (Glucosamine), 1,000 MG PO BID, (Reported) Guar/Chrm/ Bt-Org Peel/Hc109 (Dietex Forte Capsule), 1 EACH PO DAILY, ( Reported) Levothyroxine Sodium (Levothyroxine Sodium), 1 TAB PO DAILY, (Reported) Lisinopril (Lisinopril), 1 TAB PO BID, (Reported) [place]-3 Fatty Acids (Fish Oil), 360 MG PO TID, (Reported) Omeprazole (Omeprazole), 1 CAP PO DAILY, (Reported) Potassium Chloride (Potassium Chloride), 2 TAB PO DAILY, (Reported) Sertraline Hcl (Sertraline Hcl), 50 MG PO DAILY, (Reported) Warfarin Sodium (Coumadin), 1 TAB PO TWICE WEEKLY, (Reported) Warfarin Sodium (Coumadin), 1 TAB PO 5 days a week, (Reported) Scheduled PRN Cyclobenzaprine Hcl (Cyclobenzaprine Hcl), 10 MG PO TID PRN for MUSCLE PAIN Hydrocodone/Acetaminophen (Lortab 5-325 mg Tablet), 1 TAB PO PRN Q6HRS PRN for PAIN Tadalafil (Cialis), 20 MG PO PRN PRN for ED, (Reported) Miscellaneous Medications Multivits-Min/Fa/Lycopene/Lut (Centrum Silver Tablet), 1 EACH PO, (Reported) Thiamine Mononitrate (Vitamin B-1), 100 MG PO, (Reported) CAMPOS KINCAID MD Sep 28, 2016 08:27
[2016-09-28] MEDS ORDERED: ANTI-COAG MONITOR BY PHARMACY. MC PRN (08:30)
[2016-09-28] MEDS ORDERED: CARVEDILOL 12.5 MG TABLET. PO SCH (09:00)
[2016-09-28] MEDS: SERTRALINE 50 MG TABLET. PO SCH (09:05)
[2016-09-28] MEDS: PANTOPRAZOLE 40 MG TABLET.DR. PO SCH (09:05)
[2016-09-28] MEDS: POTASSIUM CHLORIDE 10 MEQ TABLET.ER. PO SCH (09:05)
[2016-09-28 09:06] VITALS: BP 133/79
[2016-09-28] MEDS: ASPIRIN ENTERIC COATED 81 MG TABLET.DR. PO SCH (09:06)
[2016-09-28] MEDS: LEVOTHYROXINE 112 MCG TABLET PO SCH (09:06)
--- NOTE | 2016-09-28 10:28 | PDOC ---
SUBJECTIVE ROS MICHAEL/ dehydration Doign and feeling much better today CVS: no Orthopnea, no CP RESP: no SOB, no PARKER GI: no Nausea, no Vomiting : n Dysuria, no Urgency OBJECTIVE Vital Signs Vital Signs Date Time Temp Pulse Resp B/P (MAP) Pulse Ox O2 Delivery O2 Flow Rate FiO2 09/28/16 09:06 102 133/79 09/28/16 08:00 Room Air 09/28/16 07:00 98.0 22 96 98.0 09/27/16 11:00 2.0 I & 0 Intake and Output 09/28/16 07:00 Intake Total 3760 ml Output Total 400 ml Balance 3360 ml Intake Oral 1910 ml Blood Product IV Normal Saline Flush 1850 ml Output Urine Total 400 ml UO is not well recorded PHYSICAL EXAM Physical Exam GEN: Awake, Oriented x 3, In no distress EYES: Vision Unchanged, Conjunctiva Normal EN: No EN Drainage, Mucous Membranes moist NECK: no JVD, no JVP, Supple, no Thyromegaly - thick CVS: S1S2, no Murmur, No Gallop, No Rub,Tr Edema - distal RESP: no Rales, no Rhonchi,no Acc. Muscle Use - distal GI: BS + ve, NO Bruit, Non Tender, Non Distended : no CVA tenderness, no Suprapubic Tenderness DIAGNOSIS/ASSESSMENT Assessment & Plan Michael due to dehyration - better with IVF - plenty of oral fluids recc for pt. vol Dpeltion - resolved per pt Low mag - PO MagOx Rx given Low phos - PO PhosNak Rx given Pt was d/dread earlier today and his ride is here so he does not wnat to stay for IV meds Problems: COMMENT/RELEVANT DATA Meds Current Medications Medications (Trade) Dose Ordered Sig/Bhumika Start Time Stop Time Status Last Admin Dose Admin Acetaminophen (Tylenol) 650 mg PRN Q6HRS PRN 09/23/16 23:15 09/27/16 06:14 650 MG Aspirin (Ecotrin) 81 mg DAILYWBKFT 09/24/16 16:30 09/28/16 09:06 81 MG Carvedilol (Coreg) 12.5 mg BIDWMEALS 09/28/16 09:00 09/28/16 09:06 12.5 MG Dextrose/Sodium Chloride 1,000 ml @ 200 mls/hr Q5H 09/23/16 15:45 09/24/16 09:14 DC 09/24/16 05:42 200 MLS/HR Info (Anti-Coagulation Monitoring By Pharmacy) 1 each PRN DAILY PRN 09/28/16 08:30 Levothyroxine Sodium (Synthroid) 112 mcg DAILY07 09/23/16 16:00 09/28/16 09:06 112 MCG Magnesium Sulfate/ Dextrose 50 ml @ 25 mls/hr 1X ONCE 09/27/16 13:00 09/27/16 14:59 DC 09/27/16 13:11 25 MLS/HR Pantoprazole Sodium (Protonix) 40 mg DAILYAC 09/23/16 16:00 09/28/16 09:05 40 MG Potassium Chloride/Dextrose/ Sod Cl 1,000 ml @ 150 mls/hr Q6H40M 09/25/16 08:45 09/28/16 08:22 DC 09/28/16 06:21 150 MLS/HR Potassium Chloride (Klor-Con) 10 meq TIDAFTMEAL 09/24/16 09:30 09/28/16 09:05 10 MEQ Pseudoephedrine HCl (Sudafed) 60 mg PRN TID PRN 09/27/16 09:30 09/28/16 02:23 60 MG Rivaroxaban (Xarelto) 20 mg DAILYWSUP 09/28/16 17:00 Sertraline HCl (Zoloft) 50 mg DAILY 09/23/16 16:00 09/28/16 09:05 50 MG Sodium Chloride 1,000 ml @ 500 mls/hr 1X ONCE 09/23/16 15:45 09/23/16 17:44 DC 09/23/16 15:30 500 MLS/HR Lab Laboratory Tests Test 09/28/16 03:25 Sodium Level 146 mmol/L (136-145) Potassium Level 4.4 mmol/L (3.5-5.1) Chloride Level 113 mmol/L (98-107) Carbon Dioxide Level 24 mmol/L (21-32) Anion Gap 9 (6-14) Blood Urea Nitrogen 20 mg/dL (8-26) Creatinine 1.2 mg/dL (0.7-1.3) Estimated GFR (Cockcroft-Gault) 59.7 Glucose Level 128 mg/dL (70-99) Calcium Level 7.7 mg/dL (8.5-10.1) Phosphorus Level 1.7 mg/dL (2.6-4.7) Magnesium Level 1.6 mg/dL (1.8-2.4) KIM RIGGS MD Sep 28, 2016 10:28
[2016-09-28] MEDS ORDERED: RIVAROXABAN 10 MG TABLET. PO SCH (17:00)
== END 2016-09-28 10:30 | disposition home or self-care (01) | DRG 683 ==
LOC: 2 NORTH 14:01
PROVIDERS: ADMIT Family Medicine; ATTEND Family Medicine
DX: N17.9 Acute kidney failure, unspecified (principal); I50.32 Chronic diastolic (congestive) heart failure; E87.0 Hyperosmolality and hypernatremia; E87.1 Hypo-osmolality and hyponatremia; Z68.41 Body mass index [BMI] 40.0-44.9, adult; I95.9 Hypotension, unspecified; E87.6 Hypokalemia; I48.91 Unspecified atrial fibrillation; E78.5 Hyperlipidemia, unspecified; E03.9 Hypothyroidism, unspecified; E86.0 Dehydration; I11.0 Hypertensive heart disease with heart failure; G47.33 Obstructive sleep apnea (adult) (pediatric); K22.70 Barrett's esophagus without dysplasia; M19.90 Unspecified osteoarthritis, unspecified site; Z96.642 Presence of left artificial hip joint; I48.0 Paroxysmal atrial fibrillation; E66.9 Obesity, unspecified; F32.9 Major depressive disorder, single episode, unspecified; Z87.01 Personal history of pneumonia (recurrent); Z79.899 Other long term (current) drug therapy; Z79.1 Long term (current) use of non-steroidal anti-inflammatories (NSAID); Z79.82 Long term (current) use of aspirin; Z90.89 Acquired absence of other organs; Z88.8 Allergy status to other drugs, medicaments and biological substances
CPT/HCPCS: 36415; 76770; 80048; 80053; 81001; 83735; 84100; 85027; 87324; 93306; A6539; J7030; J7042; J7060

== ENCOUNTER → 2016-11-09 | Outpatient (CLI) | payer OTHER ==
[~2016-11-09] MED LIST changes: +[UNRECOGNIZED DRUG - CODE] PO
--- NOTE | 2016-11-16 17:28 | RESP ---
DATE OF SERVICE: 11/09/2016 ATTENDING PHYSICIAN: Dr. Manrique. DATE OF INTERPRETATION: 11/16/2016 The patient underwent full PFTs dated 11/09/2016. FEV1 to FVC ratio was 68%. FEV1 was 1.85 liters at 55% of predicted. FVC was 2.71 liters at 59% of predicted. There was no significant bronchodilator response. Vital capacity was 59% of predicted at 2.67 liters. Diffusion capacity was preserved. IMPRESSION: 1. Mild airflow limitation. 2. Concomitant restrictive lung disease. 3. No significant bronchodilator response. STEVEN BAUTISTA MD DR: SATISH/nts JOB#: [id number] / [id number]
== END | disposition home or self-care (01) ==
LOC: PF 09:15
PROVIDERS: ATTEND Internal Medicine Cardiovascular Disease
DX: I48.0 Paroxysmal atrial fibrillation (principal); J98.4 Other disorders of lung
CPT/HCPCS: 94060; 94729

== ENCOUNTER → 2016-12-17 | Outpatient (CLI) | payer OTHER | END | disposition home or self-care (01) | LOC: PMGWOUND 09:39 | PROVIDERS: ATTEND Emergency Medicine Undersea and Hyperbaric Medicine | DX: I87.311 Chronic venous hypertension (idiopathic) with ulcer of right lower extremity (principal); L97.211 Non-pressure chronic ulcer of right calf limited to breakdown of skin; I48.91 Unspecified atrial fibrillation; E66.01 Morbid (severe) obesity due to excess calories; Z87.891 Personal history of nicotine dependence | CPT/HCPCS: 97597 ==

== ENCOUNTER → 2016-12-21 | Outpatient (CLI) | payer OTHER | END | disposition home or self-care (01) | LOC: PMGWOUND 10:03 | PROVIDERS: ATTEND Emergency Medicine Undersea and Hyperbaric Medicine | DX: I87.311 Chronic venous hypertension (idiopathic) with ulcer of right lower extremity (principal); L97.211 Non-pressure chronic ulcer of right calf limited to breakdown of skin; E66.01 Morbid (severe) obesity due to excess calories; I48.91 Unspecified atrial fibrillation; Z87.891 Personal history of nicotine dependence | CPT/HCPCS: 29581 ==

== ENCOUNTER → 2016-12-24 | Outpatient (CLI) | payer OTHER | END | disposition home or self-care (01) | LOC: PMGWOUND 12:51 | PROVIDERS: ATTEND Emergency Medicine Undersea and Hyperbaric Medicine | DX: I87.311 Chronic venous hypertension (idiopathic) with ulcer of right lower extremity (principal); L97.211 Non-pressure chronic ulcer of right calf limited to breakdown of skin; I48.91 Unspecified atrial fibrillation; E66.01 Morbid (severe) obesity due to excess calories; Z87.891 Personal history of nicotine dependence | CPT/HCPCS: 99213 ==

== ENCOUNTER → 2018-02-01 | Outpatient (CLI) | payer OTHER ==
[2017-07-11 11:00] VITALS: BP 121/64
[~2018-02-01] MED LIST changes: -AMIO200T2 PO; +AMIO200T4 PO; +LISI-130 PO; -LISI40TA PO; +WARF-31 PO; +WARF1TAB69 PO; -WARF1TAB7 PO; -WARF5TAB7 PO
--- NOTE | 2018-02-01 16:54 | KCIC ---
3 view study of the right foot Clinical indications: Crushing injury of the right foot 5 days ago. History of his doctor lancing plantar surface of distal metatarsal yesterday. Drainage from wound. FINDINGS: No acute fracture or dislocation or osteolytic process or periosteal reaction is seen. Small plantar spur of the calcaneus is seen. Dorsal soft tissue swelling is evident. No radiopaque foreign body is evident. IMPRESSION: No osteomyelitis is evident radiographically. Electronically signed by: Primitivo Covarrubias MD (02/01/2018 4:51 PM) [place] [id number]
== END | disposition home or self-care (01) ==
LOC: KCIC 14:28
PROVIDERS: ATTEND Physician Assistant Medical
DX: S97.81XD Crushing injury of right foot, subsequent encounter (principal); M77.31 Calcaneal spur, right foot; R22.42 Localized swelling, mass and lump, left lower limb; X58.XXXD Exposure to other specified factors, subsequent encounter
CPT/HCPCS: 73630

== ENCOUNTER → 2018-02-18 | Outpatient (CLI) | payer OTHER ==
[2017-07-11 11:00] VITALS: BP 121/64
[2018-02-18 13:38] LABS: BASO % 0 % (0-3); EOS # 0.1 x10^3/uL (0.0-0.7); EOS % 1 % (0-3); HEMATOCRIT 40.9 % (39.0-53.0); HEMOGLOBIN 13.7 g/dL (13.0-17.5); LYMPH # 1.4 x10^3/uL (1.0-4.8); LYMPH % 19 % (24-48); MEAN CORPUSCULAR HEMOGLOBIN 28 pg (25-35); MEAN CORPUSCULAR HGB CONC 34 g/dL (31-37); MEAN CORPUSCULAR VOLUME 85 fL (79-100); MONO # 0.5 x10^3/uL (0.0-1.1); MONO % 7 % (0-9); NEUT # 5.4 x10^3uL (1.8-7.7); NEUT % 72 % (31-73); PLATELET COUNT 196 x10^3/uL (140-400); RED BLOOD COUNT 4.82 x10^6/uL (4.30-5.70); RED CELL DISTRIBUTION WIDTH 16.6 % (11.5-14.5); WHITE BLOOD COUNT 7.5 x10^3/uL (4.0-11.0)
== END | disposition home or self-care (01) ==
LOC: LAB 12:57
PROVIDERS: ATTEND Physician Assistant Medical
DX: L08.9 Local infection of the skin and subcutaneous tissue, unspecified (principal); L03.031 Cellulitis of right toe
CPT/HCPCS: 36415; 85025; 85651; 86140; 87071; 87075

== ENCOUNTER → 2018-02-22 | Outpatient (CLI) | payer OTHER ==
[2017-07-11 11:00] VITALS: BP 121/64
--- NOTE | 2018-02-22 16:40 | KCIC ---
3 view study of the right foot Clinical indications: Cellulitis of the great toe. Jammed toe against wall 3 weeks ago. Swelling. FINDINGS: No acute fracture or dislocation or osteolytic process is seen. No soft tissue air is evident. Small plantar spur of the calcaneus is evident. IMPRESSION: No osteomyelitis is seen. Electronically signed by: Primitivo Covarrubias MD (02/22/2018 4:36 PM) [facility]
== END | disposition home or self-care (01) ==
LOC: KCIC 16:03
PROVIDERS: ATTEND Physician Assistant Medical
DX: L03.031 Cellulitis of right toe (principal); M77.31 Calcaneal spur, right foot
CPT/HCPCS: 73630

== ENCOUNTER → 2018-03-23 | Outpatient (CLI) | payer OTHER ==
[2017-07-11 11:00] VITALS: BP 121/64
[~2018-03-23] MED LIST changes: +PERFLUTREN PROTEIN-A MICROSPHR 0.22 MG/ML 3 ML VIAL. IV ONE; +PERFLUTREN PROTEIN-A MICROSPHR 0.22 MG/ML 3 ML VIAL. IV PRN
--- NOTE | 2018-03-23 15:54 | CARD ---
MR#: [id number] Date of Study: 03/23/2018 Ordering Physician: JC MERCADO, Referring Physician: JC MERCADO, Tech: Joslyn Pta APPROVED REPORT EXAM: Two-dimensional and M-mode echocardiogram with Doppler and color Doppler. Other Information Quality : FairHR: 99bpm INDICATION Pre-Op Echo Enhancing Agent Indication: Endocardial border delineation Agent/Amount Used: Optison 8mL RISK FACTORS Hypertension Hyperlipidemia 2D DIMENSIONS RVDd4.0 (2.9-3.5cm)Left Atrium(2D)4.7 (1.6-4.0cm) IVSd1.2 (0.7-1.1cm)Aortic Root(2D)3.4 (2.0-3.7cm) LVDd5.8 (3.9-5.9cm)LVOT Diameter2.5 (1.8-2.4cm) PWd1.6 (0.7-1.1cm)LVDs3.2 (2.5-4.0cm) FS (%) 45.1 %SV124.2 ml LVEF(%)75.7 (>50%) Aortic Valve AoV Peak Rudi.125.5cm/sAoV VTI25.5cm AO Peak GR.6.3mmHgLVOT Peak Rudi.79.0cm/s LVOT VTI 15.26cmAO Mean GR.4mmHg ANN (VMAX)2.12ss7BUQ (VTI)3.04cm2 Mitral Valve MV E Peak Gr.98mmHg Pulmonary Valve PV Peak Rineykzi154.7cm/sPV Peak Grad.6mmHg Pulmonary Vein S1 Xsluyznp51.3cm/sD2 Wsscmgzy78.0cm/s PVa [id number] LEFT VENTRICLE The left ventricle is normal size. There is mild to moderate concentric left ventricular hypertrophy. The left ventricular systolic function is mildly diminished. The Ejection Fraction is 45%. Diastolog y indeterminent due to atrial fibrillation. RIGHT VENTRICLE The right ventricle is normal size. There is normal right ventricular wall thickness. The right ventr icular systolic function is normal. ATRIA The left atrium is moderately dilated. The right atrium is borderline dilated. The interatrial septum is intact with no evidence for an atrial septal defect or patent foramen ovale as noted on 2-D or Do ppler imaging. AORTIC VALVE The aortic valve is not well visualized. Doppler and Color Flow revealed no significant aortic regurg itation. There is no significant aortic valvular stenosis. MITRAL VALVE The mitral valve is normal in structure and function. There is no evidence of mitral valve prolapse. There is no mitral valve stenosis. Doppler and Color-flow revealed mild mitral regurgitation. TRICUSPID VALVE The tricuspid valve is not well visualized. Doppler and Color Flow revealed trace to mild tricuspid r egurgitation. There is no tricuspid valve stenosis. PULMONIC VALVE The pulmonic valve is not well visualized. Doppler and Color Flow revealed trace pulmonic valvular re gurgitation. GREAT VESSELS The aortic root is normal in size. The IVC is dilated and collapses >50% with inspiration. PERICARDIAL EFFUSION There is no evidence of significant pericardial effusion. Critical Notification Critical Value: No <Conclusion> The left ventricular systolic function is mildly diminished. The Ejection Fraction is 45%. The left atrium is moderately dilated. Mild mitral regurgitation. Trace to mild tricuspid regurgitation. There is no evidence of significant pericardial effusion. Signed by : Casper Gerber, Electronically Approved : 03/23/2018 15:52:37
== END | disposition home or self-care (01) ==
LOC: ECHO 11:14
PROVIDERS: ATTEND Internal Medicine Cardiovascular Disease
DX: Z01.810 Encounter for preprocedural cardiovascular examination (principal); I34.0 Nonrheumatic mitral (valve) insufficiency; E78.5 Hyperlipidemia, unspecified; I48.91 Unspecified atrial fibrillation; I11.9 Hypertensive heart disease without heart failure
CPT/HCPCS: C8929; Q9956

== ENCOUNTER → 2018-03-31 | Outpatient (CLI) | payer OTHER ==
[2017-07-11 11:00] VITALS: BP 121/64
[~2018-03-31] MED LIST changes: -PERFLUTREN PROTEIN-A MICROSPHR 0.22 MG/ML 3 ML VIAL. IV ONE; -PERFLUTREN PROTEIN-A MICROSPHR 0.22 MG/ML 3 ML VIAL. IV PRN
--- NOTE | 2018-03-31 17:27 | KCIC ---
Indications: Patient fell one week ago. Has had right shoulder pain for 5 weeks. Three-view right shoulder study: No acute fracture or dislocation or osteolytic process is seen. There is mild primary degenerative osteoarthritis and spurring of the right AC joint. 2 view study of the right humerus: No acute fracture or osteolytic process is seen. IMPRESSION: No acute osseous abnormality. 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 Electronically signed by: Primitivo Covarrubias MD (03/31/2018 5:23 PM) [place] [id number]
== END | disposition home or self-care (01) ==
LOC: KCIC 15:17
PROVIDERS: ATTEND Physician Assistant Medical
DX: M19.011 Primary osteoarthritis, right shoulder (principal); M75.81 Other shoulder lesions, right shoulder
CPT/HCPCS: 73030; 73060

== ENCOUNTER → 2018-05-17 | Outpatient (CLI) | payer OTHER ==
[2017-07-11 11:00] VITALS: BP 121/64
--- NOTE | 2018-05-17 23:49 | KCIC ---
CHEST PA LATERAL History: Acute bronchitis, congestion for 2 weeks, productive cough Comparison: July 10, 2017 Findings: 2 views of the chest are submitted. Pericardial cardiac silhouette is not as prominent as previously. There is again somewhat tortuous thoracic aorta. There is probable emphysema. There is no lobar consolidation, pleural fluid, pneumothorax. There may be some opacity in the right suprahilar region although more linear appearance. Impression: 1. No lobar consolidation is identified. There is probable emphysema. Electronically signed by: Colt Rashid MD (05/17/2018 11:46 PM) [facility]
== END | disposition home or self-care (01) ==
LOC: KCIC 14:54
PROVIDERS: ATTEND Physician Assistant Medical
DX: J20.9 Acute bronchitis, unspecified (principal)
CPT/HCPCS: 71046

== ENCOUNTER → 2018-11-18 | Outpatient (CLI) | payer OTHER ==
[2017-07-11 11:00] VITALS: BP 121/64
--- NOTE | 2018-11-19 09:49 | KCIC ---
Three-view thoracic spine radiographs 11/18/2018 CLINICAL HISTORY: Mid back pain for 3 weeks. Two AP and lateral along with a swimmer's lateral digital radiographs of the thoracic spine were obtained. Comparison is made to the patient's CT scan of the thoracic spine dated 07/10/2017. There is diffuse osteopenia of the visualized bony structures. Very mild S-shaped curvature of the thoracolumbar spine is seen. An age indeterminate compression fracture of the T10 vertebral body is seen. This was not seen on the previous examination. No retropulsion of bone fragments into the central spinal canal is seen. No additional fracture of the thoracic vertebrae is seen. Degenerative changes are seen throughout the thoracic disc spaces consisting of varying degrees of disc space narrowing, vertebral endplate sclerosis and minimal to mild anterior vertebral body osteophyte formation. Degenerative changes are seen involving the facet joints throughout the mid and lower thoracic spine. IMPRESSION: Age indeterminate compression fracture of the T10 vertebral body. No retropulsion of bone fragments into the central spinal canal is seen. Electronically signed by: Deric Gomes MD (11/19/2018 9:46 AM) [facility]
== END | disposition home or self-care (01) ==
LOC: KCIC 15:53
PROVIDERS: ATTEND Physician Assistant Medical
DX: M48.54XA Collapsed vertebra, not elsewhere classified, thoracic region, initial encounter for fracture (principal); M47.894 Other spondylosis, thoracic region; M54.5 Low back pain; M25.78 Osteophyte, vertebrae
CPT/HCPCS: 72072

== ENCOUNTER → 2018-11-25 | Outpatient (CLI) | payer OTHER ==
[2017-07-11 11:00] VITALS: BP 121/64
--- NOTE | 2018-11-25 14:47 | KCIC ---
MRI Thoracic Spine without contrast History: Compression fracture T10, left side mid back pain for 3 weeks, abnormal x-ray Technique: Multiplanar, multi sequential noncontrast MR imaging was performed of the thoracic spine. Comparison: March 18, 2016 thoracic spine MRI exam; November 18, 2018 thoracic spine radiographs Findings: There has been progression of superior T10 vertebral body height loss since the 2017 exam although not associated with marrow edema or osseous retropulsion. There is some edema of the superior L1 vertebral body extending to the endplate on the left, similar degree of mild superior height loss. There is old superior T11 compression deformity without osseous retropulsion as seen previously, no edema or osseous retropulsion. There is old mild superior endplate concavity T8, stable. There is again fairly severe narrowing of the T9-10 intervertebral disc space, progression of degenerative endplate change in interval. There is overall mild degenerative disc disease at other levels of the thoracic spine. There is trace T6-7 and T7 endplate edema more centrally likely reactive/degenerative in etiology. Thoracic cord caliber is within normal limits, no defined or expansile signal abnormality. There is no new significant thoracic spinal stenosis. Facet degenerative change contributes to moderate narrowing of the left T10-11 neural foramen, mild narrowing the right at T10-11. As seen on localizer, there is multilevel cervical degenerative disc disease greatest at C3-4. There are multilevel disc osteophyte complexes and bulges of the cervical spine with likely mild spinal stenosis. Impression: 1. There is no evidence of recent thoracic compression fracture, degree of old compression deformity of inferior thoracic vertebral bodies as described T8, T10, T11 without osseous retropulsion. There is edema of the left superior L1 vertebral body near the endplate although similar degree of height loss at this level, edema which may be reactive/degenerative in etiology. There is degenerative disc disease greatest at T9-10. There is no new significant thoracic spinal stenosis. 2. Facet degenerative change contributes to mild narrowing of the left T10-11 neural foramen, minimal narrowing on the right. 3. As seen on the localizer, there is multilevel cervical degenerative disc disease and spondylosis, likely mild spinal stenosis. Electronically signed by: Colt Rashid MD (11/25/2018 2:43 PM) [facility]-KCIC1
== END | disposition home or self-care (01) ==
LOC: KCIC MRI 10:28
PROVIDERS: ATTEND Family Medicine
DX: M51.34 Other intervertebral disc degeneration, thoracic region (principal); M50.31 Other cervical disc degeneration, high cervical region; M48.04 Spinal stenosis, thoracic region; M47.812 Spondylosis without myelopathy or radiculopathy, cervical region; M47.814 Spondylosis without myelopathy or radiculopathy, thoracic region; M25.78 Osteophyte, vertebrae
CPT/HCPCS: 72146

== ENCOUNTER → 2019-04-06 | Outpatient (CLI) | payer OTHER ==
[2019-03-30 15:59] VITALS: BP 117/69
[~2019-04-06] MED LIST changes: +FURO40TA4 PO; +LISI40TA2 PO; +OMEP40CA45 PO; -OMEP40CA5 PO; +RIVA20TA2; +TAMS0.4C97 PO
--- NOTE | 2019-04-06 17:32 | KCIC ---
Three-view bilateral hand radiographs 04/06/2019 CLINICAL HISTORY: Bilateral hand pain. PA, lateral and oblique digital radiographs of both hands were obtained. No fracture or dislocation of either hand is seen. Mild to moderate degenerative changes are seen throughout the interphalangeal and MCP joints of both hands. IMPRESSION: Degenerative changes are seen involving both hands as discussed above. No acute osseous abnormality is seen. Electronically signed by: Deric Gomes MD (04/06/2019 5:29 PM) [facility]-KCIC1
== END | disposition home or self-care (01) ==
LOC: KCIC 14:46
PROVIDERS: ATTEND Physician Assistant Medical
DX: M19.042 Primary osteoarthritis, left hand (principal); M19.041 Primary osteoarthritis, right hand
CPT/HCPCS: 73130

== ENCOUNTER 2019-04-21 13:40 | Emergency (ER) | payer OTHER ==
[~2019-04-21] VITALS: Ht 180.3 cm; Wt 130.0 kg
[2019-04-21 16:11] LABS: BILIRUBIN,URINE NEGATIVE (NEG); CLARITY,URINE CLEAR; COLOR,URINE YELLOW; NITRITE,URINE NEGATIVE (NEG); PROTEIN,URINE NEGATIVE (NEG-TRACE); UROBILINOGEN,URINE 0.2 mg/dL (0.2 mg/dL)
[2019-04-21 16:17] LABS: AMORPHOUS SEDIMENT,UR PRESENT /HPF; BACTERIA,URINE 0 /HPF (0-FEW); RBC,URINE 0 /HPF (0-2); SQUAMOUS EPITHELIAL CELL,UR OCC /LPF; WBC,URINE 0 /HPF (0-4)
[2019-04-21] MEDS ORDERED: fentaNYL PF VIAL 100 MCG/2 ML VIAL IVP ONE (16:30)
[2019-04-21] MEDS ORDERED: ONDANSETRON PF 4 MG/2 ML VIAL. IVP ONE (16:30)
[2019-04-21] MEDS ORDERED: IV NORMAL SALINE 1000ML BAG 1,000 ML IV ONE (16:30)
[2019-04-21 16:51] LABS: BASO % 0 % (0-3); EOS # 0.1 x10^3/uL (0.0-0.7); EOS % 1 % (0-3); HEMATOCRIT 44.7 % (39.0-53.0); HEMOGLOBIN 14.7 g/dL (13.0-17.5); LYMPH # 1.5 x10^3/uL (1.0-4.8); LYMPH % 18 % (24-48); MEAN CORPUSCULAR HEMOGLOBIN 29 pg (25-35); MEAN CORPUSCULAR HGB CONC 33 g/dL (31-37); MEAN CORPUSCULAR VOLUME 88 fL (79-100); MONO # 0.5 x10^3/uL (0.0-1.1); MONO % 7 % (0-9); NEUT # 5.9 x10^3/uL (1.8-7.7); NEUT % 74 % (31-73); PLATELET COUNT 195 x10^3/uL (140-400); RED BLOOD COUNT 5.09 x10^6/uL (4.30-5.70); RED CELL DISTRIBUTION WIDTH 14.8 % (11.5-14.5); WHITE BLOOD COUNT 8.1 x10^3/uL (4.0-11.0)
[2019-04-21 17:15] LABS: ALBUMIN 3.4 g/dL (3.4-5.0); ALBUMIN/GLOBULIN RATIO 0.8 (1.0-1.7); CALCIUM 8.9 mg/dL (8.5-10.1); CREATININE 6.9 mg/dL (0.7-1.3); GFR 7.9; TOTAL BILIRUBIN 0.8 mg/dL (0.2-1.0); TOTAL PROTEIN 7.6 g/dL (6.4-8.2)
--- NOTE | 2019-04-21 17:15 | RAD ---
CT ABDOMEN PELVIS WO CONTRAST Indication: Flank pain. Exposure: One or more of the following individualized dose reduction techniques were utilized for this examination: 1. Automated exposure control 2. Adjustment of the mA and/or kV according to patient size 3. Use of iterative reconstruction technique. Comparison: 07/10/2017 Technique: No intravenous contrast given. No oral contrast per request. Findings: Evaluation of solid viscera, bowel and vasculature is compromised by the noncontrast technique. There is also image degradation due to body habitus. Markings identified in both lung bases, most likely atelectasis and/or fibrosis. Coronary artery calcifications are seen. Heart size appears enlarged. Liver and spleen unremarkable. The pancreas appears unremarkable. No evidence of adrenal mass. Several tiny nonobstructive renal calculi identified in both kidneys. Difficult to compare with prior study which was performed with intravenous contrast but difficult to confidently visualize at that time. No evidence of hydronephrosis. Gallbladder is not seen, either contracted or surgically absent. Aorta is mildly calcified, no evidence of aneurysm. No evidence of significant pathologic lymph node enlargement. Small hiatal hernia. Postsurgical changes are seen at the stomach which does not appear distended. Small fluid and gas collection adjacent to the head of the pancreas is most likely a small duodenal diverticulum. No significant small bowel distention. Colonic diverticulosis. The right colon and right-sided small bowel loops are poorly evaluated due to artifact related to body habitus and the [id number]. The appendix is visualized with a small calcification or appendicolith measuring 4 mm within its proximal lumen. No wall thickening or periappendiceal inflammatory changes. Small amount of gas is seen within the distal appendiceal lumen. No evidence of ascites. No evidence of pneumoperitoneum. The urinary bladder appears grossly unremarkable although incompletely visualized due to left hip replacement artifact. This also obscures other pelvic structures. Diffuse thoracolumbar spondylosis. Endplate compression deformities of several vertebral bodies appears stable since prior exam. Severe degenerative changes at the lower lumbar spine and lumbosacral junction with stenosis. Impression: 1. Tiny nonobstructive renal calculi bilaterally. No evidence of hydronephrosis or obstructive uropathy. 2. Small appendicolith, but the appendix otherwise appears within normal limits. Electronically signed by: Magno Dudley MD (04/21/2019 5:12 PM) [facility]-KCIC2
[2019-04-21 17:19] LABS: POTASSIUM 6.3 mmol/L (3.5-5.1)
[2019-04-21] MEDS ORDERED: MORPHINE SULFATE 10 MG/ML VIAL. IV ONE (18:30)
[2019-04-21 19:21] LABS: BARBITURATES NEG (NEG); BENZODIAZEPINES NEG (NEG); CANNABINOIDS NEG (NEG); COCAINE NEG (NEG); METHADONE NEG (NEG); OPIATES NEG (NEG); PHENCYCLIDINE NEG (NEG)
[2019-04-21 19:25] LABS: AMPHETAMINE/METHAMPHETAMINE NEG (NEG)
[2019-04-21 21:08] LABS: CALCIUM 8.5 mg/dL (8.5-10.1); CREATININE 0.8 mg/dL (0.7-1.3); GFR 94.8; POTASSIUM 3.8 mmol/L (3.5-5.1)
[2019-04-21] MEDS ORDERED: TAMSULOSIN 0.4 MG CAP.ER.24H. PO ONE (21:45)
[2019-04-21] MEDS ORDERED: HYDROmorphone 2 MG/ML VIAL IV ONE (21:45)
[2019-04-21 22:03] VITALS: BP 199/94
[2019-04-21] MEDS ORDERED: TAMS0.4C97 PO (22:19)
[2019-04-21] MEDS ORDERED: ONDA4TAB12 PO (22:19)
[2019-04-21] MEDS ORDERED: HYDR-3164 PO (22:19)
--- NOTE | 2019-04-21 22:19 | PHYS DOC ---
Past Medical History Past Medical History: A-Fib, GERD, High Cholesterol, Hypertension, Hypothyroid, UTI, Other Additional Past Medical Histor: LE SWELLING, HEARING LOSS (DOMINGA ELISE APRN) Past Surgical History: Hip Replacement, Tonsillectomy, Other Additional Past Surgical Histo: HEAD, NOSE (DOMINGA ELISE APRN) Smoking Status: Former Smoker Alcohol Use: Rarely Drug Use: None (DOMINGA ELISE APRN) Attending Signature I have participated in the care of this patient and I have reviewed and agree with all pertinent clinical information above including history, exam, and recom mendations. (MAXINE DAS MD) Adult General Chief Complaint Chief Complaint: FLANK PAIN HPI HPI Patient is a 73 year old male with history of A. fib, hypertension, high cholesterol, kidney stones, UTIs who presents to the ED today complaining of 6 out of 10 right flank pain that has been going on intermittently for 3 days. Patient reports this pain feels similar to the last time he had a kidney stone denies any nausea vomiting. Denies any urgency frequency or dysuria. (DOMINGA ELISE APRN) Review of Systems Review of Systems Constitutional: Denies fever or chills [] Eyes: Denies change in visual acuity, redness, or eye pain [] HENT: Denies nasal congestion or sore throat [] Respiratory: Denies cough or shortness of breath [] Cardiovascular: No additional information not addressed in HPI [] GI: Denies abdominal pain, nausea, vomiting, bloody stools or diarrhea [] : Reports right flank pain. Denies dysuria or hematuria [] Musculoskeletal: Denies back pain or joint pain [] Integument: Denies rash or skin lesions [] Neurologic: Denies headache, focal weakness or sensory changes [] All other systems were reviewed and found to be within normal limits, except as documented in this note. (DOMINGA ELISE APRN) Current Medications Current Medications Current Medications Medications (Trade) Dose Ordered Sig/Bhumika Start Time Stop Time Status Last Admin Dose Admin Fentanyl Citrate (Fentanyl 2ml Vial) 50 mcg 1X ONCE 04/21/19 16:30 04/21/19 16:31 DC 04/21/19 16:40 50 MCG Hydromorphone HCl (Dilaudid) 1 mg 1X ONCE 04/21/19 21:45 2/7/20 21:46 DC Morphine Sulfate (Morphine Sulfate) 5 mg 1X ONCE 04/21/19 18:30 04/21/19 18:31 DC 04/21/19 18:19 5 MG Ondansetron HCl (Zofran) 4 mg 1X ONCE 04/21/19 16:30 04/21/19 16:31 DC 04/21/19 16:40 4 MG Sodium Chloride 1,000 ml @ 1,000 mls/hr 1X ONCE 04/21/19 16:30 04/21/19 17:29 DC 04/21/19 16:41 1,000 MLS/HR Tamsulosin HCl (Flomax) 0.4 mg 1X ONCE 04/21/19 21:45 04/21/19 21:46 DC 04/21/19 22:22 0.4 MG (MAXINE DAS MD) Allergies Allergies Allergies Coded Allergies Type Severity Reaction Last Updated Verified naproxen Allergy Intermediate Hives 12/10/14 Yes (MAXINE DAS MD) Physical Exam Physical Exam Constitutional: Well developed, well nourished, no acute distress, non-toxic appearance. [] HENT: Normocephalic, atraumatic, bilateral external ears normal, oropharynx moist, no oral exudates, nose normal. Very hard of hearing. Eyes: PERRLA, EOMI, conjunctiva normal, no discharge. [] Neck: Normal range of motion, no tenderness, supple, no stridor. [] Cardiovascular:Heart rate regular rhythm, no murmur [] Lungs & Thorax: Bilateral breath sounds clear to auscultation [] Abdomen: Bowel sounds normal, soft, no tenderness, no masses, no pulsatile masses. [] Skin: Warm, dry, no erythema, no rash. [] Back: No tenderness, mild right CVA tenderness. [] Extremities: No tenderness, no cyanosis, no clubbing, ROM intact, no edema. [] Neurologic: Alert and oriented X 3, normal motor function, normal sensory function, no focal deficits noted. [] Psychologic: Affect normal, judgement normal, mood normal. [] (DOMINGA ELISE APRN) Current Patient Data Vital Signs Vital Signs Date Time Temp Pulse Resp B/P (MAP) Pulse Ox O2 Delivery O2 Flow Rate FiO2 04/21/19 22:03 94 18 199/94 (129) 95 Room Air 04/21/19 15:03 98.3 98.3 (MAXINE DAS MD) Lab Values Laboratory Tests Test 04/21/19 16:00 04/21/19 16:42 04/21/19 20:30 Urine Collection Type Void Urine Color Yellow Urine Clarity Clear Urine pH 8.0 Urine Specific [place] 1.015 Urine Protein Negative mg/dL (NEG-TRACE) Urine Glucose (UA) Negative mg/dL (NEG) Urine Ketones (Stick) Negative mg/dL (NEG) Urine Blood Negative (NEG) Urine Nitrite Negative (NEG) Urine Bilirubin Negative (NEG) Urine Urobilinogen Dipstick 0.2 mg/dL (0.2 mg/dL) Urine Leukocyte Esterase Negative (NEG) Urine RBC 0 /HPF (0-2) Urine WBC 0 /HPF (0-4) Urine Squamous Epithelial Cells Occ /LPF Urine Amorphous Sediment Present /HPF Urine Bacteria 0 /HPF (0-FEW) Urine Opiates Screen Neg (NEG) Urine Methadone Screen Neg (NEG) Urine Barbiturates Neg (NEG) Urine Phencyclidine Screen Neg (NEG) Urine Amphetamine/Methamphetamine Neg (NEG) Urine Benzodiazepines Screen Neg (NEG) Urine Cocaine Screen Neg (NEG) Urine Cannabinoids Screen Neg (NEG) Urine Ethyl Alcohol Neg (NEG) White Blood Count 8.1 x10^3/uL (4.0-11.0) Red Blood Count 5.09 x10^6/uL (4.30-5.70) Hemoglobin 14.7 g/dL (13.0-17.5) Hematocrit 44.7 % (39.0-53.0) Mean Corpuscular Volume 88 fL (79-100) Mean Corpuscular Hemoglobin 29 pg (25-35) Mean Corpuscular Hemoglobin Concent 33 g/dL (31-37) Red Cell Distribution Width 14.8 % (11.5-14.5) H Platelet Count 195 x10^3/uL (140-400) Neutrophils (%) (Auto) 74 % (31-73) H Lymphocytes (%) (Auto) 18 % (24-48) L Monocytes (%) (Auto) 7 % (0-9) Eosinophils (%) (Auto) 1 % (0-3) Basophils (%) (Auto) 0 % (0-3) Neutrophils # (Auto) 5.9 x10^3/uL (1.8-7.7) Lymphocytes # (Auto) 1.5 x10^3/uL (1.0-4.8) Monocytes # (Auto) 0.5 x10^3/uL (0.0-1.1) Eosinophils # (Auto) 0.1 x10^3/uL (0.0-0.7) Basophils # (Auto) 0.0 x10^3/uL (0.0-0.2) Sodium Level 144 mmol/L (136-145) 142 mmol/L (136-145) Potassium Level 6.3 mmol/L (3.5-5.1) *H 3.8 mmol/L (3.5-5.1) # Chloride Level 109 mmol/L (98-107) H 107 mmol/L (98-107) Carbon Dioxide Level 26 mmol/L (21-32) 28 mmol/L (21-32) Anion Gap 9 (6-14) 7 (6-14) Blood Urea Nitrogen 27 mg/dL (8-26) H 10 mg/dL (8-26) Creatinine 6.9 mg/dL (0.7-1.3) H 0.8 mg/dL (0.7-1.3) Estimated GFR (Cockcroft-Gault) 7.9 94.8 BUN/Creatinine Ratio 4 (6-20) L Glucose Level 92 mg/dL (70-99) 92 mg/dL (70-99) Calcium Level 8.9 mg/dL (8.5-10.1) 8.5 mg/dL (8.5-10.1) Total Bilirubin 0.8 mg/dL (0.2-1.0) Aspartate Amino Transferase (AST) 22 U/L (15-37) Alanine Aminotransferase (ALT) 19 U/L (16-63) Alkaline Phosphatase 74 U/L (46-116) Total Protein 7.6 g/dL (6.4-8.2) Albumin 3.4 g/dL (3.4-5.0) Albumin/Globulin Ratio 0.8 (1.0-1.7) L Lipase 116 U/L (73-393) Ethyl Alcohol Level < 10 mg/dL (0-10) Laboratory Tests 04/21/19 16:42 Laboratory Tests 2/7/20 16:42 04/21/19 20:30 (MAXINE DAS MD) EKG EKG [address] Seaman SR, HR 81 no STEMI (DOMINGA ELISE APRN) Radiology/Procedures Radiology/Procedures []PROCEDURE: CT ABDOMEN PELVIS WO CONTRAST CT ABDOMEN PELVIS WO CONTRAST Indication: Flank pain. Exposure: One or more of the following individualized dose reduction techniques were utilized for this examination: 1. Automated exposure control 2. Adjustment of the mA and/or kV according to patient size 3. Use of iterative reconstruction technique. Comparison: 07/10/2017 Technique: No intravenous contrast given. No oral contrast per request. Findings: Evaluation of solid viscera, bowel and vasculature is compromised by the noncontrast technique. There is also image degradation due to body habitus. Markings identified in both lung bases, most likely atelectasis and/or fibrosis. Coronary artery calcifications are seen. Heart size appears enlarged. Liver and spleen unremarkable. The pancreas appears unremarkable. No evidence of adrenal mass. Several tiny nonobstructive renal calculi identified in both kidneys. Difficult to compare with prior study which was performed with intravenous contrast but difficult to confidently visualize at that time. No evidence of hydronephrosis. Gallbladder is not seen, either contracted or surgically absent. Aorta is mildly calcified, no evidence of aneurysm. No evidence of significant pathologic lymph node enlargement. Small hiatal hernia. Postsurgical changes are seen at the stomach which does not appear distended. Small fluid and gas collection adjacent to the head of the pancreas is most likely a small duodenal diverticulum. No significant small bowel distention. Colonic diverticulosis. The right colon and right-sided small bowel loops are poorly evaluated due to artifact related to body habitus and the [id number]. The appendix is visualized with a small calcification or appendicolith measuring 4 mm within its proximal lumen. No wall thickening or periappendiceal inflammatory changes. Small amount of gas is seen within the distal appendiceal lumen. No evidence of ascites. No evidence of pneumoperitoneum. The urinary bladder appears grossly unremarkable although incompletely visualized due to left hip replacement artifact. This also obscures other pelvic structures. Diffuse thoracolumbar spondylosis. Endplate compression deformities of several vertebral bodies appears stable since prior exam. Severe degenerative changes at the lower lumbar spine and lumbosacral junction with stenosis. Impression: 1. Tiny nonobstructive renal calculi bilaterally. No evidence of hydronephrosis or obstructive uropathy. 2. Small appendicolith, but the appendix otherwise appears within normal limits. Electronically signed by: Magno Dudley MD (04/21/2019 5:12 PM) [facility]-KCIC2 DICTATED and SIGNED BY: MAGNO DUDLEY MD DATE: 04/21/19 171 (DOMINGA ELISE APRN) Course & Med Decision Making Course & Med Decision Making Pertinent Labs and Imaging studies reviewed. (See chart for details) This is a 73-year-old male patient presenting to the ED today with right flank pain, history of kidney stones. Urine analysis is negative for blood, negative for UTI. CT of the abdomen and pelvic noted for bilateral nonobstructing tiny renal calculi. CBC with normal WBC. CMP with potassium of 6.3, creatinine 6.9, BUN 27. Patient denies history of renal failure but states he has had renal insufficiency before from overmedication. Spoke with Dr. Fuentes on patient's PCP, he requested we redo the BMP, repeat BMP k 3.8, Creatinine 0.8, BUN 10. Patient was discharged to home with Flomax and pain medicine. Follow-up with his own doctor next week. (DOMINGA ELISE APRN) Dragon Disclaimer Dragon Disclaimer This electronic medical record was generated, in whole or in part, using a voice recognition dictation system. (DOMINGA ELISE APRN) Departure Departure Impression: Primary Impression: Kidney stone Disposition: HOME, SELF-CARE Condition: STABLE Referrals: CAMPOS KINCAID MD (PCP) follow up next week. Also follow up with a urologist of your choice Patient Instructions: Kidney Stones, [id number] Additional Instructions: You were evaluated in the emergency room and noted to have bilateral tiny kidney stones. Please follow-up with a urologist of your choice as well as a primary care doctor next week. Scripts Ondansetron (ONDANSETRON ODT) 4 Mg Tab.rapdis 1 TAB PO PRN Q6-8HRS, #16 TAB Prov: DOMINGA ELISE APRN 04/21/19 Hydrocodone/Apap 5-325 (NORCO 5-325 TABLET) 1 Each Tablet 1-2 TAB PO Q6HRS, #16 TAB Prov: DOMINGA ELISE APRN 04/21/19 Tamsulosin Hcl (FLOMAX) 0.4 Mg Cap.er.24h 1 CAP PO DAILY, #6 CAP 0 Refills Prov: DOMINGA ELISE APRN 04/21/19 DOMINGA ELISE APRN Apr 21, 2019 22:19 MAXINE DAS MD Apr 21, 2019 23:11
--- NOTE | 2019-04-24 06:55 | EKG ---
[facility] [address] [place] [address] Test Date: 2019-04-21 Test Time: 17:38:06 Pat Name: NAHOMY TOBAR Department: Room: Gender: M Sql Report Analyst: : 1945 Requested By: DOMINGA ELISE Order Number: [id number] Reading MD: Measurements Intervals [place] Rate: 81 P: NE: QRS: 30 QRSD: 92 T: 171 QT: 406 QTc: 478 Interpretive Statements IRREGULAR RHYTHM, NO P-WAVE FOUND VENTRICULAR PREMATURE COMPLEX(ES) T ABNORMALITY IN LATERAL LEADS INFERIOR LEADS PROLONGED QT ABNORMAL ECG RI6.01 No previous ECG available for comparison
== END 2019-04-21 22:30 | disposition home or self-care (01) ==
LOC: ER 13:40
DX: N20.0 Calculus of kidney (principal); I48.91 Unspecified atrial fibrillation; K21.9 Gastro-esophageal reflux disease without esophagitis; E78.00 Pure hypercholesterolemia, unspecified; I10 Essential (primary) hypertension; E03.9 Hypothyroidism, unspecified; F17.200 Nicotine dependence, unspecified, uncomplicated; Z90.89 Acquired absence of other organs; Z98.890 Other specified postprocedural states; Z88.6 Allergy status to analgesic agent
CPT/HCPCS: 36415; 74176; 80048; 80053; 80307; 81001; 83690; 85025; 93005; 96374; 96375; 99285; G0480; J2270; J2405; J3010; J7030

== ENCOUNTER → 2019-07-31 | Outpatient (CLI) | payer OTHER ==
[2019-04-29 12:02] VITALS: BP 140/89
[~2019-07-31] MED LIST changes: +GABA-585 PO; +HYDR-2765 PO; +HYDR-3164 PO; -LEVO112T4 PO; +LEVO112T49 PO; +ONDA4TAB12 PO; +VALA500T9 PO; -WARF-78 PO; +WARF2.5T2 PO; -WARF2.5T83 PO; +WARF5TAB2 PO
== END | disposition home or self-care (01) ==
LOC: LAB 12:15
PROVIDERS: ATTEND Internal Medicine Gastroenterology
DX: Z01.818 Encounter for other preprocedural examination (principal); Z11.59 Encounter for screening for other viral diseases
CPT/HCPCS: C9803; U0003; 36415

== ENCOUNTER → 2019-08-03 | Day surgery (SDC) | payer OTHER ==
[~2019-08-03] MED LIST changes: +HYDROmorphone 2 MG/ML VIAL IV PRN; +IV RINGERS,LACTATED 1000ML 1,000 ML IV SCH; +LIDOCAINE 1% PF 2 ML VIAL. ID PRN; +MORPHINE SULFATE 2 MG/ML VIAL. IV PRN; +ONDANSETRON PF 4 MG/2 ML VIAL. IV PRN; +PROCHLORPERAZINE 10 MG/2 ML VIAL. IV PRN; +PROPOFOL 10 MG/ML (20ML) VIAL. IV ONE; +WARF-78 PO; -WARF2.5T2 PO; +WARF2.5T83 PO; -WARF5TAB2 PO; +fentaNYL PF VIAL 100 MCG/2 ML VIAL IV PRN
[2019-08-03 13:56] VITALS: BP 151/82
--- NOTE | 2019-08-03 17:35 | CONS ---
DATE OF CONSULTATION: REFERRING PHYSICIAN: Barak Muhammad PA-C REASON FOR CONSULTATION: Lovett's surveillance. HISTORY OF PRESENT ILLNESS: A 73-year-old male with past medical history significant for hyperlipidemia, hypertension, hypothyroidism as well as nephrolithiasis, is seen for interval of endoscopy. He has lost 85 pounds since his gastric sleeve surgery and endoscopy is recommended at this time for surveillance of the Lovett's. He otherwise without additional complaints. PAST MEDICAL HISTORY: Lovett's, hyperlipidemia, hypertension, hypothyroidism, palpitations. ALLERGIES: NAPROXEN. MEDICATIONS: Include atorvastatin, carvedilol, vitamin D, furosemide, levothyroxine, lisinopril, omeprazole, Xarelto, sertraline, tamsulosin, valacyclovir. FAMILY AND SOCIAL HISTORY: Nondrinker, nonsmoker at this time. PAST SURGICAL HISTORY: Hip joint replacement. REVIEW OF SYSTEMS: Per records. PHYSICAL EXAMINATION: GENERAL: Reveals a well-nourished male who is alert, cooperative, in no acute distress. VITAL SIGNS: Temperature 97.2, pulse 100, respirations 20. LUNGS: Clear. CARDIOVASCULAR: Reveals an S1, S2 without S3, S4 or appreciable murmur. ABDOMEN: Reveals a soft abdomen, normal bowel sounds, without appreciable hepatosplenomegaly. 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 We will recommend interval of endoscopy for surveillance with biopsies. Risks and benefits have been discussed with the patient and is willing to proceed at this time. ANNAMARIE MICHAUD MD DR: KELLE/olayinka JOB#: [id number] / [id number]
--- NOTE | 2019-08-09 17:06 | PATHOLOGY ---
[facility] Accession Number: [id number] . 01 Material submitted: . esophagus - DISTAL ESOPHAGUS BX. Modifiers: distal . 01 Clinical history: . HX Lovett's . 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 - There is focal high grade dysplasi arising in the back ground of mild dysplasia. - See comment. ([facility] 08/04/2019) [facility] 08/09/2019 1610 Local . 02 Comment: There is mainly mild dysplasia but there is also a focal area with atypia and back to back glands consistent with high grade dysplasia. This case is also reviewed by Dr. Charisse Josue and Dr. Elvis Chavez and they agree with the above diagnosis. ([facility] 08/04/2019) . 02 Electronically signed: . Can Chavez MD, Pathologist NPI- [id number] . 01 Gross description: . The specimen is received in formalin, labeled "Wesly Anderson, distal esophagus BX" and consists of fragments of pink-pantoja tissue measuring 1.0 x 0.5 x 0.2 cm in aggregate which are entirely submitted in A1. ([facility]; 08/03/2019) [facility]/SYU 08/03/2019 1649 Local . 02 Pathologist provided ICD-10: K21.0 . 02 CPT . 892484 Specimen Comment: A courtesy copy of this report has been sent to [phone] Specimen Comment: [id number] Specimen Comment: Report sent to / DR KINCAID Performed at: [address], [place], [place] [id number] MD Lloyd Fraire MD Phone: [phone] Performed at: [address] [id number] MD Leo Sepulveda MD Phone: [phone]
== END | disposition home or self-care (01) ==
LOC: ENDOS 11:11
PROVIDERS: ATTEND Internal Medicine Gastroenterology
DX: K22.70 Barrett's esophagus without dysplasia (principal); K21.0 Gastro-esophageal reflux disease with esophagitis; K31.89 Other diseases of stomach and duodenum; I10 Essential (primary) hypertension; E78.5 Hyperlipidemia, unspecified; E03.9 Hypothyroidism, unspecified; I49.9 Cardiac arrhythmia, unspecified; E66.9 Obesity, unspecified; I48.91 Unspecified atrial fibrillation; G47.39 Other sleep apnea; E78.00 Pure hypercholesterolemia, unspecified; I25.10 Atherosclerotic heart disease of native coronary artery without angina pectoris; M19.90 Unspecified osteoarthritis, unspecified site; Z79.899 Other long term (current) drug therapy; Z98.84 Bariatric surgery status; Z88.8 Allergy status to other drugs, medicaments and biological substances; Z98.890 Other specified postprocedural states; Z96.642 Presence of left artificial hip joint; Z68.41 Body mass index [BMI] 40.0-44.9, adult
CPT/HCPCS: 43239; J2704; 88305

== ENCOUNTER → 2019-11-14 | Outpatient (CLI) | payer OTHER ==
[2019-08-03 13:56] VITALS: BP 151/82
[~2019-11-14] MED LIST changes: -HYDROmorphone 2 MG/ML VIAL IV PRN; -IV RINGERS,LACTATED 1000ML 1,000 ML IV SCH; -LIDOCAINE 1% PF 2 ML VIAL. ID PRN; -MORPHINE SULFATE 2 MG/ML VIAL. IV PRN; -ONDANSETRON PF 4 MG/2 ML VIAL. IV PRN; -PROCHLORPERAZINE 10 MG/2 ML VIAL. IV PRN; -PROPOFOL 10 MG/ML (20ML) VIAL. IV ONE; -WARF-78 PO; +WARF2.5T2 PO; -WARF2.5T83 PO; +WARF5TAB2 PO; -fentaNYL PF VIAL 100 MCG/2 ML VIAL IV PRN
== END | disposition home or self-care (01) ==
LOC: LAB 15:06
PROVIDERS: ATTEND Internal Medicine Gastroenterology
DX: Z20.828 Contact with and (suspected) exposure to other viral communicable diseases (principal)
CPT/HCPCS: U0003-CS

== ENCOUNTER → 2019-11-17 | Day surgery (SDC) | payer OTHER ==
[~2019-11-17] MED LIST changes: +IV RINGERS,LACTATED 1000ML 1,000 ML IV ONE; +LIDOCAINE 2% PF 5 ML VIAL. ONE; +PROPOFOL 10 MG/ML (20ML) VIAL. IV ONE
--- NOTE | 2019-11-17 10:19 | CONS ---
DATE OF CONSULTATION: 11/17/2019 REFERRING PHYSICIAN: Barak Muhammad. REASON FOR CONSULTATION: Lovett's with high-grade dysplasia. HISTORY OF PRESENT ILLNESS: A 74-year-old male with past medical history significant for Lovett's, hypertension, hypothyroidism as well as sleep apnea, seen for interval colonoscopy. Recent endoscopy back in August did reveal Lovett's with an area of low to high-grade dysplasia. Surveillance exam is recommended in 3 months with medical therapy to reassess symptoms. Denies any dysphagia or change in bowel habits or additional constitutional symptoms at this time. PAST MEDICAL HISTORY: Hyperlipidemia, hypothyroidism, hypertension, Lovett's. ALLERGIES: NAPROSYN. MEDICATIONS: Include atorvastatin, carvedilol, furosemide, levothyroxine, lisinopril, omega-3, omeprazole, Xarelto, sertraline. FAMILY AND SOCIAL HISTORY: Significant for ovarian cancer with mother and maternal grandmother, CVA with father, diabetes with two siblings. PAST SURGICAL HISTORY: Joint replacement. REVIEW OF SYSTEMS: Per records. PHYSICAL EXAMINATION: GENERAL: Reveals a well-nourished, well-developed male who is alert, cooperative, in no acute distress. VITAL SIGNS: Temperature 97.5, pulse 82, respiratory rate 20. LUNGS: Clear. CARDIOVASCULAR: Reveals an S1, S2 without S3, S4 or appreciable murmur. ABDOMEN: Reveals a soft abdomen, normal bowel sounds, without appreciable hepatosplenomegaly. EXTREMITIES: Reveals no cyanosis, clubbing or edema. IMPRESSION: Lovett's with high-grade dysplasia. Interval exam is recommended today with biopsies with persistent dysplasia noted and the patient would be referred to Surgery and Oncology for possible esophagectomy and/or radiation chemotherapy as adjuvant treatments at [facility]. ANNAMARIE MICHAUD MD DR: EKLLE/olayinka JOB#: [id number] / [id number]
[2019-11-17 10:25] VITALS: BP 138/78
== END | disposition home or self-care (01) ==
LOC: ENDOS 08:11
PROVIDERS: ATTEND Internal Medicine Gastroenterology
DX: K29.50 Unspecified chronic gastritis without bleeding (principal); K22.711 Barrett's esophagus with high grade dysplasia; I10 Essential (primary) hypertension; E03.9 Hypothyroidism, unspecified; E78.5 Hyperlipidemia, unspecified; G47.30 Sleep apnea, unspecified; Z87.891 Personal history of nicotine dependence; Z88.8 Allergy status to other drugs, medicaments and biological substances; Z79.899 Other long term (current) drug therapy
CPT/HCPCS: 43239; J2704

== ENCOUNTER → 2020-11-12 | Outpatient (CLI) | payer OTHER ==
[2020-02-07 11:00] VITALS: BP 141/97
[~2020-11-12] MED LIST changes: -AMIO200T4 PO; +AMIO200T6 PO; +DIPH25TA64 PO; +DOCU50CA9 PO; -ISOS30TA4 PO; +ISOS30TA68 PO; -IV RINGERS,LACTATED 1000ML 1,000 ML IV ONE; -LIDOCAINE 2% PF 5 ML VIAL. ONE; -LISI40TA2 PO; +LISI40TA6 PO; -OMEP40CA45 PO; +OMEP40CA7 PO; -PROPOFOL 10 MG/ML (20ML) VIAL. IV ONE; +SERT-267 PO; -SERT50TA8 PO
--- NOTE | 2020-11-13 08:34 | KCIC ---
EXAM: 3 views right foot DATE: 11/12/2020 9:50 AM INDICATION: Reason: Foot pain, swelling and discoloration distal 2nd digit. / Spl. Instructions: Dog sat on foot 3 days ago. / History: . COMPARISON: No Prior FINDINGS: Evaluation of the second toe is limited given overlap. However there is deformity of the middle phala nx centered at the PIP joint suspicious for fracture and can be correlated with patient's symptoms. Decreased bone mineral density. Hallux MTP joint and scattered IP joint degenerative changes. Small c alcaneal enthesophytes. Mild forefoot and midfoot swelling. IMPRESSION: 1. Limited evaluation of the second toe. Within these constraints suspect impacted, intra-articular middle phalanx fractured centered at the PIP joint. 2. Decreased bone mineral density. 3. Multifocal degenerative change. Electronically signed by: Adonay Box MD (11/13/2020 8:32 AM) [id number]
== END ==
LOC: KCIC 09:44
PROVIDERS: ATTEND Physician Assistant Medical
DX: M19.071 Primary osteoarthritis, right ankle and foot (principal); M85.872 Other specified disorders of bone density and structure, left ankle and foot; M77.31 Calcaneal spur, right foot; M25.474 Effusion, right foot; M79.89 Other specified soft tissue disorders
CPT/HCPCS: 73630

== ENCOUNTER → 2021-03-27 | Outpatient (CLI) | payer MEDICARE, OTHER ==
[2020-02-07 11:00] VITALS: BP 141/97
[~2021-03-27] MED LIST changes: +AMIO200T53 PO; -AMIO200T6 PO; +CYCL10TA19 PO; -CYCL10TA2 PO
--- NOTE | 2021-03-28 11:06 | CARD ---
MR#: [id number] Date of Study: 03/27/2021 Ordering Physician: JC MERCADO, Referring Physician: JC MERCADO, Tech: Joslyn Pat, [facility] APPROVED REPORT EXAM: Two-dimensional and M-mode echocardiogram with Doppler and color Doppler. Other Information Quality : FairHR: [id number] Technically limited study due to body habitus. INDICATION Atrial Fibrillation RISK FACTORS Hypertension Hyperlipidemia 2D DIMENSIONS Left Atrium(2D)4.4 (1.6-4.0cm)IVSd1.2 (0.7-1.1cm) Aortic Root(2D)3.4 (2.0-3.7cm)LVDd6.1 (3.9-5.9cm) LVOT Diameter2.1 (1.8-2.4cm)PWd1.3 (0.7-1.1cm) LVDs3.3 (2.5-4.0cm)FS (%) 45.5 % SV140.7 mlLVEF(%)66.0 (>50%) Aortic Valve AoV Peak Rudi.134.4cm/sAoV VTI26.2cm AO Peak GR.7.2mmHgLVOT Peak Rudi.95.3cm/s LVOT VTI 17.69cmAO Mean GR.4mmHg ANN (VMAX)1.49gz6AQZ (VTI)2.40cm2 Mitral Valve MV E Mmmnuswz30.7cm/sMV DECEL RHZF141nw MV A Rblzdpea18.0cm/sMV E Mean Gr.2mmHg MV PIC13dgX/A Ratio2.7 MVA (PHT)4.27cm2 TDI E/Lateral E'7.7E/Medial E'10.4 Pulmonary Valve PV Peak Jpzgdnro24.8cm/sPV Peak Grad.3mmHg Tricuspid Valve TR P. Pakpezgx623kp/sRAP RCRJLSES61ssWv TR Peak Gr.16nxZhIXBM06pfYo LEFT VENTRICLE The left ventricle is normal size. There is mild to moderate concentric left ventricular hypertrophy. The left ventricular systolic function is normal. The Ejection Fraction is 55%. There is normal LV s egmental wall motion. RIGHT VENTRICLE The right ventricle is mildly dilated. There is normal right ventricular wall thickness. The right ve ntricular systolic function is normal. ATRIA The left atrium is mild to moderately dilated. The right atrium is moderately dilated. The interatria l septum is intact with no evidence for an atrial septal defect or patent foramen ovale as noted on 2 -D or Doppler imaging. AORTIC VALVE The aortic valve is not well visualized. Doppler and Color Flow revealed trace aortic regurgitation. Calculated aortic valve area is 2.63 cm2 with maximum pressure gradient of 10 mmHg and mean pressure gradient of 6 mmHg. There is no significant aortic valvular stenosis. MITRAL VALVE The mitral valve is normal in structure and function. There is no evidence of mitral valve prolapse. There is no mitral valve stenosis. Doppler and Color-flow revealed trace mitral regurgitation. TRICUSPID VALVE The tricuspid valve is normal in structure and function. Doppler and Color Flow revealed mild tricusp id regurgitation with an estimated PAP of 46 mmHg. There is no tricuspid valve stenosis. PULMONIC VALVE The pulmonic valve is not well visualized. Doppler and Color Flow revealed trace pulmonic valvular re gurgitation. GREAT VESSELS The aortic root is normal in size. The ascending aorta is Mildly dilated measuring 3.89 cm. The IVC i s dilated and collapses <50% with inspiration. PERICARDIAL EFFUSION There is no evidence of significant pericardial effusion. Critical Notification Critical Value: No <Conclusion> The left ventricular systolic function is normal. The Ejection Fraction is 55%. There is normal LV segmental wall motion. Trace mitral regurgitation. Mild tricuspid regurgitation with an estimated PAP of 46 mmHg. There is no evidence of significant pericardial effusion. Signed by : Casper Gerber, Electronically Approved : 03/28/2021 11:06:24
== END ==
LOC: ECHO 13:44
PROVIDERS: ATTEND Internal Medicine Cardiovascular Disease
DX: I34.0 Nonrheumatic mitral (valve) insufficiency (principal); I77.810 Thoracic aortic ectasia; I51.7 Cardiomegaly; I48.91 Unspecified atrial fibrillation
CPT/HCPCS: 93306

== ENCOUNTER → 2021-07-21 | Outpatient (CLI) | payer OTHER ==
[2020-02-07 11:00] VITALS: BP 141/97
--- NOTE | 2021-07-21 15:08 | KCIC ---
EXAM: Chest, 2 views. HISTORY: Shortness of air. Chest pain. COMPARISON: None. FINDINGS: 2 views of the chest are obtained. There is diffuse increased interstitial opacity. There i s linear atelectasis or scarring within the right lower lobe. There is a prominent cardiac silhouette . There is no pleural effusion or pneumothorax. IMPRESSION: 1. Diffuse interstitial infiltrate or chronic interstitial changes with superimposed right lower lobe linear atelectasis or scarring. 2. Prominent chronic silhouette. Electronically signed by: Viola Pool MD (07/21/2021 3:06 PM) [id number]
== END ==
LOC: KCIC 14:17
PROVIDERS: ATTEND Physician Assistant Medical
DX: J06.9 Acute upper respiratory infection, unspecified (principal); R07.81 Pleurodynia
CPT/HCPCS: 71046